=== PATIENT | female | born 1960 | race Caucasian/White ===

== ENCOUNTER 2018-01-13 08:24 | Inpatient (IN) ==
[2018-01-13] MEDS ORDERED: MethylPREDNISolone Sod Succinate Inj 125 MG/2 ML Vial IV.PUSH ONE (08:38)
[2018-01-13] MEDS ORDERED: Sod Chloride 0.9% Inj 1,000 ML IV.CONT SCH (08:45)
--- NOTE | 2018-01-13 08:49 | ED ---
HPI General Chief complaint: Allergic Reaction Stated complaint: tongue swelling x sunday Time Seen by Provider: 01/13/18 08:30 Source: patient Mode of arrival: ambulatory Limitations: no limitations History of Present Illness HPI narrative: This is a 58-year-old female who presents to the emergency department with severe swelling and pain in her mouth involving her tongue. She says she first felt some discomfort on Sunday, 6 days ago. She went to the pharmacy to ask if they knew of anything that could improve it mid week. She feels like the swelling has gotten worse and today she woke up this morning and was unable to talk and decided she needed to come to the emergency department. She denies any associated shortness of breath but does have pain when she swallows. She has never had symptoms like this before. She denies any fevers or chills. She does not take any medications. She is allergic to mangoes and has significant swelling when she eats mangoes but does not think she is eaten anything like this in the past week. She does smoke a pack of cigarettes per day and drinks 3 alcoholic beverages a day. Related Data Home Medications Medication Instructions Recorded Confirmed ibuprofen 1 tab PO DIRECTED 01/13/18 01/13/18 Allergies Allergy/AdvReac Type Severity Reaction Status Date / Time hydrocodone AdvReac Nausea/Vomi Verified 01/13/18 08:38 ting Review of Systems ROS: all other systems reviewed are negative [facility] Medical History Medical History Patient denies medical problems (Acute) Surgical History Surgical History No history of previous surgery (Acute) Social History Social History Substance History: No History of Abuse Smoking Status: Current every day smoker Tobacco Type: Cigarettes Packs Per Day: 1 Cigarettes Per Day: 20.0 How Often Do You Have a Drink Containing Alcohol: 4 or more times a week Recent Out of Country Travel within the Last 8 Weeks: No Immunization History Tetanus Immunization: Unsure Hx Influenza Vaccine This Season: No Exam Narrative Exam Narrative: GENERAL:Well appearing, no acute distress SKIN: Focused skin assessment warm and dry. HEAD: Atraumatic. Normocephalic. EYES: Pupils equal and round. No injection or drainage. ENT: Moist mucous membranes. Edema of the sublingual region and right tongue, unable to visualize the posterior pharynx. Sublingual area is tender. No fullness or tenderness of the submandibular region. Patient has difficulty phonating, but is handling her secretions without difficulty. NECK: Trachea midline. CARDIOVASCULAR: Regular rate and rhythm. No murmur appreciated. RESPIRATORY: Diffuse expiratory wheezing bilaterally with no increased work of breathing. GASTROINTESTINAL: Abdomen soft, non-tender, nondistended. MUSCULOSKELETAL: No obvious deformities. NEUROLOGICAL: Awake and alert. No obvious cranial nerve deficits. Moving all extremities. PSYCHIATRIC: Appropriate mood and affect; insight and judgment normal. Course Initial Documented Vital Signs Temperature 98.2 F 01/13/18 08:36 Pulse Rate 61 01/13/18 08:36 Respiratory Rate 18 01/13/18 08:36 Blood Pressure 132/76 01/13/18 08:36 Pulse Oximetry 93 L 01/13/18 08:36 Last Documented Vital Signs Temperature 98.2 F 01/13/18 08:36 Pulse Rate 77 01/13/18 11:12 Respiratory Rate 18 01/13/18 11:12 Blood Pressure 141/77 H 01/13/18 11:12 Pulse Oximetry 96 01/13/18 08:51 Critical Care Time Critical Care Time: Yes Total Critical Care Time: 60 Attestation: Aggregate critical care time was 60 minutes. Time to perform other separately billable procedures was not included in the critical care time. My time did not include minutes spent treating any other patients simultaneously or on activities that did not directly contribute to the patient's treatment. The services I provided to this patient were to treat and/or prevent clinically significant deterioration that could result in: Disability, I provided critical care services requiring my management, as noted below: Chart data review, documentation time, medication orders and management, vital sign assessments/reviewing monitor data, ordering and reviewing lab tests, ordering and interpreting/reviewing x-rays and diagnostic studies, care of the patient and discussion of the patient with the admitting physicians. Medical Decision Making MDM Narrative Medical decision making narrative: This is a 58-year-old female who presents to the emergency department with tongue swelling that has been worsening over the past week. On exam she has fullness of her tongue and the sublingual area and I am unable to visualize the posterior pharynx. It does look edematous on exam however the time course would be unusual for an allergic reaction. She was treated with IM epinephrine, diphenhydramine and IV steroids. Her phonation seemed to improve somewhat following this. She is able to manage her own secretions and on my impression does not require intubation at this time. CT demonstrates edema at the base of the tongue involving the lingular tonsils with no evident fluid collection or mass. Patient will be transported to the intensive care unit at [facility] for close monitoring and availability of the anesthesia team and advanced airway equipment if she worsens. Medical Screen Exam Complete: Yes Emergency Medical Condition: Yes Differential Diagnosis Differential Diagnosis: Acute allergic reaction, angioedema, malignancy, abscess Lab Data Lab results reviewed: Yes I reviewed the patient's lab results. Lab results narrative: MCV is 105 likely in the setting of poor nutrition due to heavy alcohol use Result diagrams: 01/13/18 08:40 01/13/18 08:40 Lab Results 01/13/18 01/13/18 Range/Units 08:40 08:40 CBC w Diff Auto diff final WBC 11.0 (4.0-11.0) th/mm3 RBC 4.07 (4.00-5.30) mil/mm3 Hgb 15.0 (11.6-15.3) gm/dL Hct 43.1 (35.0-46.0) % MCV 105.9 H (80.0-100.0) fL MCH 37.0 H (27.0-34.0) pg MCHC 34.9 (32.0-36.0) % RDW 14.7 (11.6-17.2) % Plt Count 195 (150-450) th/mm3 MPV 9.6 (7.0-11.0) fL Neut % (Auto) 62.5 (16.0-70.0) % Lymph % (Auto) 25.1 (9.0-44.0) % [place]ockley % (Auto) 9.7 H (0.0-8.0) % Eos % (Auto) 1.2 (0.0-4.0) % Baso % (Auto) 1.5 (0.0-2.0) % Neut # (Auto) 6.8 (1.8-7.7) th/mm3 Lymph # (Auto) 2.8 (1.0-4.8) th/mm3 [place]ockley # (Auto) 1.1 H (0.0-0.9) th/mm3 Eos # (Auto) 0.1 (0.0-0.4) th/mm3 Baso # (Auto) 0.2 (0.0-0.2) th/mm3 WBC Differential . Differential Comment . Sodium 137 (136-145) meq/L Potassium 3.4 L (3.5-5.1) meq/L Chloride 103 (98-107) meq/L Carbon Dioxide 24.6 (21.0-32.0) meq/L Anion Gap 9 (5-15) meq/L BUN 3 L (7-18) mg/dL Creatinine 0.67 (0.50-1.00) mg/dL Estimated GFR Greater than 89 (>89) mL/min Random Glucose 99 (74-106) mg/dL Calcium 8.7 (8.5-10.1) mg/dL Total Bilirubin 0.5 (0.2-1.0) mg/dL AST 24 (15-37) U/L ALT 23 (10-53) U/L Alkaline Phosphatase 103 (45-117) U/L Total Protein 7.5 (6.4-8.2) g/dL Albumin 3.8 (3.4-5.0) g/dL Imaging Data Attestation: I personally reviewed and interpreted this imaging study as follows : Radiologist's impression: Face CT 01/13/18 08:38 CONCLUSION: 1. Significant edema base of the tongue involving lingual tonsils more so on the right than the left. [place] tonsils are spared. Inflammatory or allergic process is most likely etiology. Neoplasm thought to be more remote consideration. 2. Findings have been discussed with Dr. Burns on today's date Discharge Plan Discharge Disposition Patient Disposition: 30 Still Patient Discharge Condition Condition: Stable Discharge Details Diagnosis: Tongue edema Physicians Team ED Provider: Caridad Burns Primary Care Provider: Primary Care Nataly You Attending Provider: Robbi Sawyer Discharge Interventions Interventions: Vital Signs Last Done: 01/13/18 11:12 Status ED Status: Admitted Patient
[2018-01-13 08:50] LABS: Baso # (Auto) 0.2 th/mm3 (0.0-0.2); Baso % (Auto) 1.5 % (0.0-2.0); Eos # (Auto) 0.1 th/mm3 (0.0-0.4); Eos % (Auto) 1.2 % (0.0-4.0); Hematocrit 43.1 % (35.0-46.0); Lymph # (Auto) 2.8 th/mm3 (1.0-4.8); Lymph % (Auto) 25.1 % (9.0-44.0); Mean Corpuscular HGB Conc 34.9 % (32.0-36.0); Mean Corpuscular Volume 105.9 fL (80.0-100.0); Mean Platelet Volume 9.6 fL (7.0-11.0); Mono # (Auto) 1.1 th/mm3 (0.0-0.9); Mono % (Auto) 9.7 % (0.0-8.0); Neut # (Auto) 6.8 th/mm3 (1.8-7.7); Neut % (Auto) 62.5 % (16.0-70.0); Platelet Count 195 th/mm3 (150-450); Red Blood Count 4.07 mil/mm3 (4.00-5.30); Red Cell Distribution Width 14.7 % (11.6-17.2)
[2018-01-13 08:58] LABS: Chloride 103 meq/L (98-107); Potassium 3.4 meq/L (3.5-5.1); Sodium 137 meq/L (136-145)
[2018-01-13 09:01] LABS: Albumin 3.8 g/dL (3.4-5.0); Anion Gap 9 meq/L (5-15); Calcium 8.7 mg/dL (8.5-10.1); Carbon Dioxide 24.6 meq/L (21.0-32.0); Glucose,Random 99 mg/dL (74-106)
[2018-01-13 09:02] LABS: Blood Urea Nitrogen 3 mg/dL (7-18)
[2018-01-13 09:04] LABS: Alanine Aminotransferase 23 U/L (10-53); Aspartate Aminotransferase 24 U/L (15-37)
[2018-01-13 09:05] LABS: Glomerular Filtration Rate Greater Than 89 mL/min (>89)
[2018-01-13 09:06] LABS: Total Protein 7.5 g/dL (6.4-8.2)
[2018-01-13 09:07] LABS: Alkaline Phosphatase 103 U/L (45-117)
--- NOTE | 2018-01-13 09:52 | CT ---
EXAM DATE: 01/13/2018 9:36 AM EDT AGE/SEX: 58 years / Female INDICATIONS: Swollen tongue for six days. Patient woke up this morning and was unable to talk. CLINICAL DATA: This is the patient's initial encounter. Patient reports that signs and symptoms have been present for 4 - 6 days and indicates a pain score of 0/10. MEDICAL/SURGICAL HISTORY: None. None. RADIATION DOSE: 30.02 CTDI (mGy) COMPARISON: No prior exams available for comparison. TECHNIQUE: Contiguous images in the axial and coronal planes were obtained using helical multirow de tector technique with 95 ml Omnipaque 350 (iohexol) nonionic water-soluble contrast as a single exam dose. Using automated exposure control and adjustment of the mA and/or kV according to patient size , radiation dose was kept as low as reasonably achievable to obtain optimal diagnostic quality images . DICOM format image data is available electronically for review and comparison. FINDINGS: The oropharynx is unremarkable with a large swollen on and enhancing lingual tonsil on the right. Thi s is an unusual place for abscess. This induration and edema extends into the mildly dilated geniohyo id muscles. The lingual artery space on the right is effaced. The palatine tonsils are normal in size. Submandibular glands and parotid glands appear normal. The low neck is unremarkable. There is no adenopathy. CONCLUSION: 1. Significant edema base of the tongue involving lingual tonsils more so on the right than the left . [place] tonsils are spared. Inflammatory or allergic process is most likely etiology. Neoplasm tho ught to be more remote consideration. 2. Findings have been discussed with Dr. Burns on today's date Electronically signed by: Ankur Monge MD 01/13/2018 9:51 AM EDT
[2018-01-13] MEDS ORDERED: RESP: Racemic Epinephrine 2.25% 0.5 ML Neb NEB PRN (11:29)
[2018-01-13] MEDS ORDERED: Haloperidol Inj 5 MG/ML Ampul IV.PUSH PRN (11:32)
--- NOTE | 2018-01-13 11:49 | P.HPCC ---
History of Present Illness Service: Critical care medicine Primary Care Physician: No Primary Care Physician Chief Complaint: Painful mouth and neck, difficulty swallowing History of Present Illness: This 58-year-old woman has a 6 day history of the sensation of a mass in the back of her throat and pain when swallowing. She has not had this type of response before except one time associated with the ingestion of mangoes. Her only allergy is to hydrocodone and that resulted in nausea and vomiting. She is on no MK inhibitors or other medications which might elicit this response. CAT scan of the face and neck shows diffuse swelling of the base of the tongue and considerable swelling of the right tonsillar region. The left tonsillar region is moderately edematous. She is afebrile and there is no leukocytosis. We have been contacted by the emergency department in [place] and she will be transferred to the intensive surgical care unit at the [facility] for airway precautions and further evaluation. She has received steroids at the outside hospital. - Diagnosis (1) Tongue edema (2) Impaired swallowing associated with throat pain Inpatient Certification: I certify that the inpatient services were ordered in accordance with Medicare regulations governing the order. This includes certification that hospital inpatient services are reasonable and necessary and in the case of services not specified as inpatient-only under 42 CFR 419.22(n), that they are appropriately provided as inpatient services in accordance to with the 2-midnight benchmark under 43 CFR 412.3(e) Estimated Total Length of Stay (Days): 2 Plans for Post Hospital Care: Home Review of Systems Painful swallowing. No chest pain or shortness of breath. PMF - History History Provided By: Patient, Family Member - Medical History Medical History: Medical History (Last Reviewed 01/13/18 @ 08:47 by Caridad Burns MD) Patient denies medical problems - Surgical History Surgical History: Surgical History (Last Reviewed 01/13/18 @ 08:47 by Caridad Burns MD) No history of previous surgery - Tobacco History Tobacco Use In Past 30 Days: Yes Smoking Status: Current every day smoker Tobacco Type: Cigarettes Packs Per Day: 1 Cigarettes Per Day: 20.0 - Alcohol History How Often Do You Have a Drink Containing Alcohol: 4 or more times a week - Substance Use History Substance History: No History of Abuse - Travel History Recent Travel Out of the Country Within the Last 8 Weeks: No - Immunization History Tetanus Immunization: Unsure Hx Influenza Vaccine This Season: No Medications and Allergies Active Medications: Active Medications Albuterol (Duoneb Neb (Prn)) 1 ampul NEB Q2HR NEB PRN PRN Reason: WHEEZING Chlorhexidine Gluconate (Chlorhexidine 2% Cloth) 3 pack TOPICAL DAILY@0400 DEDRA Stop: 01/19/18 03:59 Chlorhexidine Gluconate (Chlorhexidine 2% Cloth) 3 pack TOPICAL DAILY@0400 PRN PRN Reason: Extra cloth needed Stop: 01/19/18 03:59 Dexamethasone Sodium Phosphate (Decadron Inj) 10 mg IV.PUSH ONCE ONE Stop: 01/13/18 13:01 Dexamethasone Sodium Phosphate (Decadron Inj) 4 mg IV.PUSH Q6HR DEDRA Enoxaparin Sodium (Lovenox Inj) 40 mg SQ Q24H DEDRA Epinephrine (Racepinephrine 2.25% Neb) 0.5 ml NEB Q3H PRN PRN Reason: STRIDOR Famotidine (Pepcid Pf Inj) 20 mg IV.PUSH Q12HR DEDRA Flumazenil (Romazecon Inj) 0.2 mg IV.PUSH Q1M PRN PRN Reason: OVERSEDATION Haloperidol Lactate (Haldol Inj) 1 mg IV.PUSH Q15M PRN PRN Reason: for severe agitation Potassium Chloride/Sodium Chloride (Ns + Kcl 20 Meq Inj) 1,000 mls @ 50 mls/hr IV.CONT .Q20H DEDRA Ceftriaxone Sodium 1,000 mg/ (Sodium Chloride) 100 mls @ 200 mls/hr IV.SIG Q24H DEDRA Lorazepam (Ativan Inj) 1 mg IV.PUSH Q6H PRN PRN Reason: Agitation/sedation Lorazepam (Ativan) 2 mg PO Q2H PRN PRN Reason: for CIWA 11-14 Lorazepam (Ativan Inj) 2 mg IV.PUSH Q2H PRN PRN Reason: for CIWA 11-14 Lorazepam (Ativan Inj) 2 mg IV.PUSH Q1H PRN PRN Reason: for CIWA 15-20 Lorazepam (Ativan Inj) 1 mg IV.PUSH Q4H PRN PRN Reason: for CIWA 8-10 Lorazepam (Ativan Inj) 2 mg IV.PUSH Q15M PRN PRN Reason: for CIWA > 20 Ondansetron HCl (Zofran Inj) 4 mg IV.PUSH Q6H PRN PRN Reason: NAUSEA OR VOMITING Sodium Chloride (Ns Flush) 2 ml IV.FLUSH PRN PRN PRN Reason: FLUSH AFTER USING IV ACCESS Last Admin: 01/13/18 08:48 Dose: 2 ml Sodium Chloride (Ns Flush) 2 ml IV.FLUSH BID DEDRA Sodium Chloride (Ns Flush) 2 ml IV.FLUSH PRN PRN PRN Reason: FLUSH AFTER USING IV ACCESS Allergies Allergy/AdvReac Type Severity Reaction Status Date / Time hydrocodone AdvReac Nausea/Vomi Verified 01/13/18 08:38 ting Home Medications Medication Instructions Recorded Confirmed Type ibuprofen 1 tab PO DIRECTED 01/13/18 01/13/18 History Results - Labs CBC & Chem 7: 01/13/18 08:40 01/13/18 08:40 Labs: Short CBC 01/13/18 Range/Units 08:40 WBC 11.0 (4.0-11.0) th/mm3 Hgb 15.0 (11.6-15.3) gm/dL Hct 43.1 (35.0-46.0) % Plt Count 195 (150-450) th/mm3 BMP 01/13/18 08:40 Sodium 137 Potassium 3.4 L Chloride 103 Carbon Dioxide 24.6 BUN 3 L Creatinine 0.67 Calcium 8.7 Liver Function 01/13/18 Range/Units 08:40 Total Bilirubin 0.5 (0.2-1.0) mg/dL AST 24 (15-37) U/L ALT 23 (10-53) U/L Alkaline Phosphatase 103 (45-117) U/L Albumin 3.8 (3.4-5.0) g/dL - Imaging Impressions Face CT 01/13/18 08:38 CONCLUSION: 1. Significant edema base of the tongue involving lingual tonsils more so on the right than the left. [place] tonsils are spared. Inflammatory or allergic process is most likely etiology. Neoplasm thought to be more remote consideration. 2. Findings have been discussed with Dr. Burns on today's date Exam Vital signs: Vital Signs 01/13/18 08:36 01/13/18 08:37 01/13/18 08:51 Temperature 98.2 F Pulse Rate 61 69 Respiratory Rate 18 18 Blood Pressure 132/76 119/78 Pulse Oximetry 93 L 96 96 01/13/18 11:12 Temperature Pulse Rate 77 Respiratory Rate 18 Blood Pressure 141/77 H Pulse Oximetry Intake & Output 01/12/18 01/13/18 01/13/18 18:59 06:59 18:59 Weight 53.524 kg Narrative: General: Middle-aged woman, comfortable, hoarse voice Head: Normal: Atraumatic Neck: Supple, no tenderness to motion. No stridor. Tender by carotid bifurcation right side Lungs: Clear, comfortable respiratory pattern, nonlabored. Heart: Walsh tones. Normal S1-S2. No JVD Abdomen: Benign, soft, no guarding. Extremities: Warm, well-perfused. No peripheral edema Neuro: Voice is mildly distorted. Motor and sensory grossly intact. Cranial nerves II through XII intact. Oriented, alert, appropriate. Caprini VTE Risk Assessment Caprini VTE Risk Assessment: Moderate/High Risk (score >= 2) Caprini Risk Assessment Model: Point Value = 1 Point Value = 2 Point Value = 3 Point Value = 5 Age 41-60 Minor surgery BMI > 25 kg/m2 Swollen legs Varicose veins or History of unexplained or recurrent spontaneous Oral contraceptives or hormone replacement Sepsis (< 1 month) Serious lung disease, including pneumonia (< 1 month) Abnormal pulmonary function Acute myocardial infarction Congestive heart failure (< 1 month) History of inflammatory bowel disease Medical patient at bed rest Age 61-74 Arthroscopic surgery Major open surgery (> 45 min) Laparoscopic surgery (> 45 min) Malignancy Confined to bed (> 72 hours) Immobilizing plaster cast Central venous access Age >= 75 History of VTE Family history of VTE Factor V Leiden Prothrombin [id number] Lupus anticoagulant Anticardiolipin antibodies Elevated serum homocysteine Heparin-induced thrombocytopenia Other congenital or acquired thrombophilia Stroke (< 1 month) Elective arthroplasty Hip, pelvis, or leg fracture Acute spinal cord injury (< 1 month) Prophylaxis Regimen: Total Risk Factor Score Risk Level Prophylaxis Regimen 0-1 Low Early ambulation 2 Moderate Order ONE of the following: *Sequential Compression Device (SCD) *Heparin 5000 units SQ BID 3-4 Higher Order ONE of the following medications: *Heparin 5000 units SQ TID *Enoxaparin/Lovenox 40 mg SQ daily (WT < 150 kg, CrCl > 30 mL/min) *Enoxaparin/Lovenox 30 mg SQ daily (WT < 150 kg, CrCl > 10-29 mL/min) *Enoxaparin/Lovenox 30 mg SQ BID (WT < 150 kg, CrCl > 30 mL/min) AND/OR *Sequential Compression Device (SCD) 5 or more Highest Order ONE of the following medications: *Heparin 5000 units SQ TID (Preferred with Epidurals) *Enoxaparin/Lovenox 40 mg SQ daily (WT < 150 kg, CrCl > 30 mL/min) *Enoxaparin/Lovenox 30 mg SQ daily (WT < 150 kg, CrCl > 10-29 mL/min) *Enoxaparin/Lovenox 30 mg SQ BID (WT < 150 kg, CrCl > 30 mL/min) AND *Sequential Compression Device (SCD) Assessment and Plan - Problem List (1) Tongue edema Code(s): K14.8 - Other diseases of tongue Status: Acute (2) Impaired swallowing associated with throat pain Code(s): R13.10 - Dysphagia, unspecified; R07.0 - Pain in throat Status: Acute - Assessment and Plan Plan: Plan: Tongue and tonsil edema, upper airway obstruction -Decadron every 6 hours -Ceftriaxone -Attempt throat culture -Minimal extra intravenous fluid -N.p.o. aside from sips of clear liquids -Pepcid -ENT consult for help with decision-making Active cigarette use -Counseled for cessation -Offered NicoDerm patch Daily alcohol use -CIWA protocol Prophylaxis -Lovenox 40 subcu daily -Pepcid Overall impression: This woman's most immediate problem is potential airway obstruction. For that she will be watched closely in the intensive care unit. The generalized tongue and pharyngeal edema appears to be consistent with an allergic problem, potentially an infectious problem. The differential includes simple angioedema, topical allergic reaction, infection with early abscess formation, and malignancy. It looks to me like an early abscess. Her airway is widely patent at this point.
[2018-01-13] MEDS ORDERED: Dexamethasone Inj 20 MG/5 ML Vial IV.PUSH ONE (13:00)
[2018-01-13] MEDS: Enoxaparin Inj 40 MG/0.4 ML Syringe SQ SCH ×2 (15:25→15:49)
[2018-01-13] MEDS ORDERED: Ibuprofen 400 MG Tablet PO PRN (16:11)
[2018-01-13] MEDS: Famotidine PF Inj 20 MG/2 ML Vial IV.PUSH SCH (20:27)
[2018-01-14] MEDS ORDERED: Chlorhexidine Gluconate 2% 1 Pack (2 Cloths) TOPICAL PRN (04:00)
[2018-01-14] MEDS ORDERED: Chlorhexidine Gluconate 2% 1 Pack (2 Cloths) TOPICAL SCH (04:00)
[2018-01-14 04:56] LABS: Baso % (Auto) 0.2 % (0.0-2.0); Hematocrit 41.7 % (35.0-46.0); Hemoglobin 14.3 gm/dL (11.6-15.3); Lymph # (Auto) 0.4 th/mm3 (1.0-4.8); Lymph % (Auto) 4.6 % (9.0-44.0); Mean Corpuscular HGB Conc 34.2 % (32.0-36.0); Mean Corpuscular Hemoglobin 37.8 pg (27.0-34.0); Mean Corpuscular Volume 110.5 fL (80.0-100.0); Mean Platelet Volume 11.6 fL (7.0-11.0); Mono # (Auto) 0.4 th/mm3 (0.0-0.9); Mono % (Auto) 4.6 % (0.0-8.0); Neut # (Auto) 8.3 th/mm3 (1.8-7.7); Neut % (Auto) 90.6 % (16.0-70.0); Platelet Count 152 th/mm3 (150-450); Red Blood Count 3.78 mil/mm3 (4.00-5.30); Red Cell Distribution Width 14.6 % (11.6-17.2); White Blood Count 9.2 th/mm3 (4.0-11.0)
[2018-01-14 05:23] LABS: Calcium 9.2 mg/dL (8.5-10.1); Carbon Dioxide 27.9 meq/L (21.0-32.0); Potassium 4.5 meq/L (3.5-5.1)
--- NOTE | 2018-01-14 06:51 | P.CON ---
History of Present Illness Service: ENT Consult date: 01/14/18 Reason for Consult: Lingual tonsil swelling Primary Care Provider: No Primary Care Physician Chief Complaint: Painful mouth and neck, difficulty swallowing History of Present Illness: 58 year old female. Several days sore throat. Started as right tongue pain. Became swollen with trismus. Presented to ED. CT confirmed lingual tonsil swelling, right greater than left. Placed on IV steroids and antibiotics. Much better today. [facility] - History History Provided By: Patient - Medical History Medical History: Medical History (Last Reviewed 01/13/18 @ 08:47 by Caridad Burns MD) Patient denies medical problems - Surgical History Surgical History: Surgical History (Last Reviewed 01/13/18 @ 08:47 by Caridad Burns MD) No history of previous surgery - Tobacco History Second Hand Smoke Exposure: Yes Tobacco Use In Past 30 Days: Yes Smoking Status: Current every day smoker Tobacco Type: Cigarettes Packs Per Day: 1 Cigarettes Per Day: 20.0 - Alcohol History How Often Do You Have a Drink Containing Alcohol: 4 or more times a week - Substance Use History Substance History: No History of Abuse - Travel History Recent Travel Out of the Country Within the Last 8 Weeks: No - Immunization History Tetanus Immunization: <5 Years Hx Influenza Vaccine This Season: No Medications and Allergies Active Medications: Active Medications Albuterol (Duoneb Neb (Prn)) 1 ampul NEB Q2HR NEB PRN PRN Reason: WHEEZING Chlorhexidine Gluconate (Chlorhexidine 2% Cloth) 3 pack TOPICAL DAILY@0400 [facility] Stop: 01/19/18 03:59 Chlorhexidine Gluconate (Chlorhexidine 2% Cloth) 3 pack TOPICAL DAILY@0400 PRN PRN Reason: Extra cloth needed Stop: 01/19/18 03:59 Dexamethasone Sodium Phosphate (Decadron Inj) 4 mg IV.PUSH Q6HR [facility] Last Admin: 01/13/18 23:14 Dose: 4 mg Enoxaparin Sodium (Lovenox Inj) 40 mg SQ Q24H [facility] Last Admin: 01/13/18 15:49 Dose: Not Given Epinephrine (Racepinephrine 2.25% Neb) 0.5 ml NEB Q3HR NEB PRN PRN Reason: STRIDOR Famotidine (Pepcid Pf Inj) 20 mg IV.PUSH Q12HR [facility] Last Admin: 01/13/18 20:27 Dose: Not Given Flumazenil (Romazecon Inj) 0.2 mg IV.PUSH Q1M PRN PRN Reason: OVERSEDATION Haloperidol Lactate (Haldol Inj) 1 mg IV.PUSH Q15M PRN PRN Reason: for severe agitation Potassium Chloride/Sodium Chloride (Ns + Kcl 20 Meq Inj) 1,000 mls @ 50 mls/hr IV.CONT .Q20H [facility] Last Admin: 01/13/18 15:25 Dose: 50 mls/hr Ceftriaxone Sodium 1,000 mg/ (Sodium Chloride) 100 mls @ 200 mls/hr IV.SIG Q24H [facility] Last Infusion: 01/13/18 15:54 Dose: Infused Ibuprofen (Motrin) 400 mg PO Q6H PRN PRN Reason: PAIN 1-10 AND/OR FEVER >101F Lorazepam (Ativan Inj) 1 mg IV.PUSH Q6H PRN PRN Reason: Agitation/sedation Lorazepam (Ativan) 2 mg PO Q2H PRN PRN Reason: for CIWA 11-14 Lorazepam (Ativan Inj) 2 mg IV.PUSH Q2H PRN PRN Reason: for CIWA 11-14 Lorazepam (Ativan Inj) 2 mg IV.PUSH Q1H PRN PRN Reason: for CIWA 15-20 Lorazepam (Ativan Inj) 1 mg IV.PUSH Q4H PRN PRN Reason: for CIWA 8-10 Lorazepam (Ativan Inj) 2 mg IV.PUSH Q15M PRN PRN Reason: for CIWA > 20 Ondansetron HCl (Zofran Inj) 4 mg IV.PUSH Q6H PRN PRN Reason: NAUSEA OR VOMITING Last Admin: 01/13/18 15:35 Dose: 4 mg Sodium Chloride (Ns Flush) 2 ml IV.FLUSH PRN PRN PRN Reason: FLUSH AFTER USING IV ACCESS Last Admin: 01/13/18 08:48 Dose: 2 ml Sodium Chloride (Ns Flush) 2 ml IV.FLUSH BID [facility] Last Admin: 01/13/18 20:27 Dose: Not Given Sodium Chloride (Ns Flush) 2 ml IV.FLUSH PRN PRN PRN Reason: FLUSH AFTER USING IV ACCESS Allergies Allergy/AdvReac Type Severity Reaction Status Date / Time hydrocodone AdvReac Nausea/Vomi Verified 01/13/18 08:38 ting Home Medications Medication Instructions Recorded Confirmed Type ibuprofen 1 tab PO DIRECTED 01/13/18 01/13/18 History Physical Exam Vital signs: Vital Signs 01/13/18 08:36 01/13/18 08:37 01/13/18 08:51 Temperature 98.2 F Pulse Rate 61 69 Respiratory Rate 18 18 Blood Pressure 132/76 119/78 Pulse Oximetry 93 L 96 96 01/13/18 11:12 01/13/18 14:30 01/13/18 15:22 Temperature 98.4 F Pulse Rate 77 76 Respiratory Rate 18 16 Blood Pressure 141/77 H 134/82 Pulse Oximetry 97 97 01/13/18 16:00 01/13/18 18:00 01/13/18 20:00 Temperature 98.4 F 98.7 F Pulse Rate 72 64 73 Respiratory Rate 20 19 Blood Pressure 136/87 128/68 Pulse Oximetry 95 95 01/13/18 22:00 01/13/18 22:30 01/14/18 00:00 Temperature 97.8 F Pulse Rate 56 L 53 L Respiratory Rate 26 H Blood Pressure 107/64 Pulse Oximetry 96 92 L 01/14/18 02:00 01/14/18 04:00 Temperature 97.8 F Pulse Rate 55 L 52 L Respiratory Rate 19 Blood Pressure 111/69 Pulse Oximetry 93 L Intake & Output 01/13/18 01/13/18 01/14/18 06:59 18:59 06:59 Intake Total 1270 / 1270 Balance 1270 / 1270 Weight 55.7 kg Intake: IV 550 / 550 NS Inj 1,000 ML @ 125 mls/hr IV 450 / 450 .CONT .Q8H [facility] Rx#:[id number] Rocephin Inj 1,000 MG In NS Inj 100 / 100 100 ML @ 200 mls/hr IV.SIG Q24H [facility] Rx#:[id number] Oral 720 / 720 Other: # Voids 2 Date of Last Bowel Movement 01/12/18 # Bowel Movements 0 Weight On Admission 55.7 kg - Constitutional average body habitus - Routine HEENT Exam Head: Present: normocephalic, atraumatic. Absent: facial swelling Eye: Present: EOMI, PERRL. Absent: nystagmus ENT: Present: mucous membranes moist, nares patent, external ear normal. Absent : oropharynx clear (Mild residual right tongue swelling. Hairy tongue. No trismus. ), sinus tenderness - Routine Neurological Exam Present: alert, oriented X3 Assessment and Plan - Assessment (1) Tongue edema Code(s): K14.8 - Other diseases of tongue Status: Acute (2) Impaired swallowing associated with throat pain Code(s): R13.10 - Dysphagia, unspecified; R07.0 - Pain in throat Status: Acute - Plan 58 year old female with lingual tonsillitis. Possible early abscess. Has responded very well to IV Decadron and Rocephin. Recommend continuing IV therapy today. Can discharge tomorrow on a Medrol Dose Pack and Augmentin or Clindamycin for 1 week. Follow with ENT prn. Needs good tongue brushing/oral care.
[2018-01-14] MEDS: Famotidine PF Inj 20 MG/2 ML Vial IV.PUSH SCH (09:08)
--- NOTE | 2018-01-14 11:38 | P.DS ---
Date of admission: 01/13/18 11:06 Primary care physician: No Primary Care Physician Attending physician on discharge: Stephenie Carroll Anticipated date of discharge: 01/14/18 Brief History from admission: This 58-year-old woman has a 6 day history of the sensation of a mass in the back of her throat and pain when swallowing. She has not had this type of response before except one time associated with the ingestion of mangoes. Her only allergy is to hydrocodone and that resulted in nausea and vomiting. She is on no MK inhibitors or other medications which might elicit this response. CAT scan of the face and neck shows diffuse swelling of the base of the tongue and considerable swelling of the right tonsillar region. The left tonsillar region is moderately edematous. She is afebrile and there is no leukocytosis. We have been contacted by the emergency department in [place] and she will be transferred to the intensive surgical care unit at the [facility] for airway precautions and further evaluation. She has received steroids at the outside hospital. Patient update on day of discharge: 01/14: Patient reports that her tongue swelling is "much better" today, swallowing without difficulty, no trismus or drooling. She is requesting to be discharged. She was seen by ENT today, who agrees with steroids/ antibiotics and outpatient follow up PRN. DS: Diagnosis - Discharge Diagnosis (1) Tongue edema Status: Acute DS: Medications - Discharge Medications Prescriptions: clindamycin HCl [Cleocin HCl] 300 mg PO TID 7 Days #21 cap dexamethasone [Decadron] 4 mg PO Q6H 3 Days #12 tab DS: Summary Hospital Course: The patient was admitted overnight to the intensive care unit for close monitoring in the setting of tongue/ airway swelling. She was given scheduled steroids and antibiotics. She was seen by ENT this morning, who agrees with antibiotics/ steroids and outpatient follow up as needed. The patient reports significant improvement in swelling and is requesting to be discharged home. - Time Spent with Patient Counseling/ Coordination of Care: Total time spent providing and/or coordinating discharge services: 35 minutes This includes examining the patient, gathering history from someone other than the patient (i.e. chart review), discussing the patient's care with other providers, prescribing medications/ reconciliation of inpatient medications, and documentation. Amount of time is separate from teaching, counseling the patient and/or family, and exclusive of procedures. Greater than 30 minutes - Quality: AMI Clinical Trial Participant: No - Quality: VTE Contraindication No VTE Prophylaxis: Not indicated Deep Vein Thrombosis/Pulmonary Embolism Present on Admission: No Exam Vital signs: Vital Signs 01/13/18 14:30 01/13/18 15:22 01/13/18 16:00 Temperature 98.4 F 98.4 F Pulse Rate 76 72 Respiratory Rate 16 20 Blood Pressure 134/82 136/87 Pulse Oximetry 97 97 95 01/13/18 18:00 01/13/18 20:00 01/13/18 22:00 Temperature 98.7 F Pulse Rate 64 73 56 L Respiratory Rate 19 Blood Pressure 128/68 Pulse Oximetry 95 01/13/18 22:30 01/14/18 00:00 01/14/18 02:00 Temperature 97.8 F Pulse Rate 53 L 55 L Respiratory Rate 26 H Blood Pressure 107/64 Pulse Oximetry 96 92 L 01/14/18 04:00 01/14/18 06:00 01/14/18 08:00 Temperature 97.8 F 97.9 F Pulse Rate 52 L 55 L 59 L Respiratory Rate 19 15 Blood Pressure 111/69 145/82 H Pulse Oximetry 93 L 95 01/14/18 08:09 01/14/18 10:00 Temperature Pulse Rate 75 Respiratory Rate Blood Pressure Pulse Oximetry 96 Intake & Output 01/13/18 01/14/18 01/14/18 18:59 06:59 18:59 Intake Total 1270 / 1270 720 / 720 1000 / 1000 Balance 1270 / 1270 720 / 720 1000 / 1000 Weight 55.7 kg 55.7 kg Intake: IV 550 / 550 1000 / 1000 NS + KCl 20 mEq Inj 1,000 ML @ 1000 / 1000 50 mls/hr IV.CONT .Q20H [facility] Rx# :[id number] NS Inj 1,000 ML @ 125 mls/hr IV 450 / 450 .CONT .Q8H [facility] Rx#:[id number] Rocephin Inj 1,000 MG In NS Inj 100 / 100 100 ML @ 200 mls/hr IV.SIG Q24H [facility] Rx#:[id number] Oral 720 / 720 720 / 720 Other: # Voids 2 2 Date of Last Bowel Movement 01/12/18 01/12/18 # Bowel Movements 0 0 Weight On Admission 55.7 kg Narrative: GEN: Well-appearing, sitting up in chair, no acute distress HEENT: NCAT, mild right-sided tongue swelling, no trismus or drooling, uvula midline, normal phonation NECK: No stridor CARDIO: Regular rate and rhythm PULM: Clear to auscultation bilaterally ABD/GI: Soft, non-tender EXT: No peripheral edema SKIN: No rashes or lesions NEURO: Awake and alert, speech clear and fluent PSYCH: Appropriate affect Results Procedures completed during hospitalization: None Completed studies during hospitalization: CT face: 1. Significant edema base of the tongue involving lingual tonsils more so on the right than the left. [place] tonsils are spared. Inflammatory or allergic process is most likely etiology. Neoplasm thought to be more remote consideration. Pending studies at discharge: None Labs on day of discharge: Labs from last 24 hours 01/14/18 01/14/18 01/13/18 03:51 03:51 15:26 WBC 9.2 RBC 3.78 L Hgb 14.3 Hct 41.7 MCV 110.5 H D MCH 37.8 H MCHC 34.2 RDW 14.6 Plt Count 152 MPV 11.6 H Neut % (Auto) 90.6 H Lymph % (Auto) 4.6 L [place] % (Auto) 4.6 Eos % (Auto) 0.0 Baso % (Auto) 0.2 Neut # (Auto) 8.3 H Lymph # (Auto) 0.4 L [place] # (Auto) 0.4 Eos # (Auto) 0.0 Baso # (Auto) 0.0 WBC Differential . Differential Comment Auto diff final Sodium 139 Potassium 4.5 D Chloride 105 Carbon Dioxide 27.9 Anion Gap 6 BUN 6 L Creatinine 0.70 Estimated GFR 86 L Random Glucose 170 H Calcium 9.2 Nasal Screen MRSA (PCR) Not detected - Impressions ITS Impressions Face CT 01/13/18 08:38 CONCLUSION: 1. Significant edema base of the tongue involving lingual tonsils more so on the right than the left. [place] tonsils are spared. Inflammatory or allergic process is most likely etiology. Neoplasm thought to be more remote consideration. 2. Findings have been discussed with Dr. Burns on today's date Discharge Plan - Discharge Disposition Patient Disposition: Discharge Home - Discharge Condition Condition: Stable - Discharge Order Discharge Orders: Discharge Order (Routine); Ordered 01/14/18 Ordered By: Stephenie Carroll - Discharge Details Anticipated Discharge Date: 01/14/18 - Physicians Team Primary Care Provider: Primary Care Nataly You Attending Provider: Robbi Sawyer Other Providers: Chalino Clemente MD
[2018-01-14] MEDS: Enoxaparin Inj 40 MG/0.4 ML Syringe SQ SCH (12:10)
[2018-01-14 12:36] VITALS: PULSE 85
[2018-01-14 12:37] VITALS: BP 123/61; RESP 20; TEMP 98.9; O2SAT 97
== END 2018-01-14 14:00 | disposition home or self-care (01) ==
LOC: PHED 08:24 → PHEDA 11:06 → N03 13:31
PROVIDERS: ADMIT Internal Medicine Critical Care Medicine; ATTEND Internal Medicine Critical Care Medicine

== ENCOUNTER 2018-01-19 16:03 | Inpatient (IN) ==
--- NOTE | 2018-01-19 17:06 | ED ---
HPI General Chief Complaint: Recheck/Abnormal Lab/Rx Stated Complaint: Swollen tongue and throat Time Seen by Provider: 01/19/18 17:06 Source: patient Mode of arrival: ambulatory Limitations: no limitations History of Present Illness HPI narrative: The patient is 58 years old and arrives with sore throat and swelling in the right side of the throat. She is seen here about 1 week ago and diagnosed with peritonsillar abscess. Actually the patient was seen at [place] and diagnosed with peritonsillar abscess there she was kept overnight and discharged and followed up with Dr. Clemente of ENT. She went home with dexamethasone and clindamycin 300 mg 3 times daily. She has been compliant with the clindamycin and dexamethasone strictly. She reports over the past day and a half or so she has developed increasing pain and swelling in the right throat. Is now difficult to open the mouth. It is difficult to swallow although patient is able to tolerate oral hydration with with a straw. complaint: needs IV antibiotics Initial visit (ago): day(s) (6) Initial visit for: other (Peritonsillar abscess) Returns today for: needs IV antibiotics Symptoms since prior visit: worsening pain and worsening swelling Treatments prior to arrival: given antibiotics on Related Data Home Medications Medication Instructions Recorded Confirmed ibuprofen 1 tab PO DIRECTED 01/13/18 01/19/18 Previous Rx's Medication Instructions Recorded clindamycin HCl [Cleocin HCl] 300 mg PO TID 7 Days #21 cap 01/14/18 Allergies Allergy/AdvReac Type Severity Reaction Status Date / Time hydrocodone AdvReac Nausea/Vomi Verified 01/13/18 08:38 ting Review of Systems ROS: all other systems reviewed are negative [facility] Medical History Medical History Tobacco abuse (Acute) Patient denies medical problems (Acute) Surgical History Surgical History No history of previous surgery (Acute) Family History Family History Mother Stroke COPD (chronic obstructive pulmonary disease) Social History Social History Substance History: No History of Abuse Second Hand Smoke Exposure: Yes Smoking Status: Current every day smoker Tobacco Type: Cigarettes Packs Per Day: 1 Cigarettes Per Day: 20.0 How Often Do You Have a Drink Containing Alcohol: 4 or more times a week Recent Travel in [facility] within the Last 8 Weeks: No Recent Out of Country Travel within the Last 8 Weeks: No Immunization History Tetanus Immunization: Unsure Exam Narrative Exam Narrative: GENERAL: 58-year-old female well-nourished well-developed, moderate distress SKIN: Focused skin assessment warm/dry. HEAD: Atraumatic. Normocephalic. EYES: Pupils equal and round. No scleral icterus. No injection or drainage. ENT: Patient has some difficulty fully opening the mouth. The right soft palate is depressed there is a white exudate in the region of the right peritonsillar distribution. Along the right anterior neck externally there is generalized swelling with minimal tenderness. NECK: Trachea midline. No JVD. CARDIOVASCULAR: Regular rate and rhythm. No murmur appreciated. RESPIRATORY: No accessory muscle use. Clear to auscultation. Breath sounds equal bilaterally. GASTROINTESTINAL: Abdomen soft, non-tender, nondistended. Hepatic and splenic margins not palpable. MUSCULOSKELETAL: No obvious deformities. No clubbing. No cyanosis. No edema. NEUROLOGICAL: Awake and alert. No obvious cranial nerve deficits. Motor grossly within normal limits. Normal speech. PSYCHIATRIC: Appropriate mood and affect; insight and judgment normal. Course Initial Documented Vital Signs Temperature 98.9 F 01/19/18 16:30 Pulse Rate 76 01/19/18 16:30 Respiratory Rate 15 01/19/18 16:30 Blood Pressure 146/88 H 01/19/18 16:30 Pulse Oximetry 96 01/19/18 16:30 Last Documented Vital Signs Temperature 98.6 F 01/19/18 23:25 Pulse Rate 55 L 01/20/18 04:00 Respiratory Rate 14 01/20/18 05:13 Blood Pressure 88/50 L 01/20/18 04:00 Pulse Oximetry 97 01/20/18 04:00 Sign Out Sign Out Data: Patient Sign Out occurred on 01/19/18 at 19:45. Patient's care was discussed, and care was transferred from Cruzito Bradford MD to Joseph Jorgensen. Sign Out Comment: Patient has a peritonsillar abscess and require require admission for IV antibiotics that she is currently on oral clindamycin which has not been effective. CT of the neck is pending. Last updated by Cruzito Bradford MD at 01/19/18 19:37 Post-Handoff Eval: Patient has a CT that shows a worsening of the right-sided infection spreading now more caudal she is able to tolerate her own secretions there is no sign of airway compromise clinically she will be seen in the a.m. ENT consult is placed for a.m. in the morning. Pain medication is given Vanco and Unasyn had been given Medical Decision Making MDM Narrative Medical decision making narrative: Patient returns to the ED with peritonsillar abscess. CT of the neck is pending. She has leukocytosis. No fever or tachycardia. Unasyn and vancomycin started. Patient will require admission for ongoing IV antibiotics. Patient can tolerate oral hydration with a straw Case discussed with Dr. Jorgensen at 7 PM, who will assume care for this patient. Medical Screen Exam Complete: Yes Emergency Medical Condition: Yes Differential Diagnosis Differential Diagnosis: Peritonsillar abscess, retropharyngeal abscess, Airway obstruction, sepsis Lab Data Lab results reviewed: Yes I reviewed the patient's lab results. Result diagrams: 01/20/18 03:13 01/20/18 03:13 Lab Results 01/19/18 01/19/18 01/19/18 Range/Units 17:24 17:24 23:10 WBC 13.7 H (4.0-11.0) th/mm3 RBC 4.20 (4.00-5.30) mil/mm3 Hgb 15.5 H (11.6-15.3) gm/dL Hct 45.8 (35.0-46.0) % MCV 109.0 H (80.0-100.0) fL MCH 37.0 H (27.0-34.0) pg MCHC 34.0 (32.0-36.0) % RDW 14.2 (11.6-17.2) % Plt Count 182 (150-450) th/mm3 MPV 11.2 H (7.0-11.0) fL Neut % (Auto) 72.5 H (16.0-70.0) % Lymph % (Auto) 12.4 (9.0-44.0) % [place] % (Auto) 14.2 H (0.0-8.0) % Eos % (Auto) 0.8 (0.0-4.0) % Baso % (Auto) 0.1 (0.0-2.0) % Neut # (Auto) 9.9 H (1.8-7.7) th/mm3 Lymph # (Auto) 1.7 (1.0-4.8) th/mm3 [place] # (Auto) 1.9 H (0.0-0.9) th/mm3 Eos # (Auto) 0.1 (0.0-0.4) th/mm3 Baso # (Auto) 0.0 (0.0-0.2) th/mm3 WBC Differential . Differential Comment Auto diff final Sodium 139 (136-145) meq/L Potassium 3.7 (3.5-5.1) meq/L Chloride 103 (98-107) meq/L Carbon Dioxide 28.2 (21.0-32.0) meq/L Anion Gap 8 (5-15) meq/L BUN 15 (7-18) mg/dL Creatinine 0.71 (0.50-1.00) mg/dL Estimated GFR 85 L (>89) mL/min Random Glucose 86 (74-106) mg/dL Calcium 9.5 (8.5-10.1) mg/dL Total Bilirubin 0.6 (0.2-1.0) mg/dL AST 16 (15-37) U/L ALT 23 (10-53) U/L Alkaline Phosphatase 73 (45-117) U/L Total Protein 7.3 (6.4-8.2) g/dL Albumin 3.5 (3.4-5.0) g/dL Nasal Screen MRSA (PCR) Not detected (Negative) 01/20/18 01/20/18 Range/Units 03:13 03:13 WBC 15.7 H (4.0-11.0) th/mm3 RBC 3.87 L (4.00-5.30) mil/mm3 Hgb 14.3 (11.6-15.3) gm/dL Hct 42.6 (35.0-46.0) % MCV 110.2 H (80.0-100.0) fL MCH 37.0 H (27.0-34.0) pg MCHC 33.6 (32.0-36.0) % RDW 14.1 (11.6-17.2) % Plt Count 159 (150-450) th/mm3 MPV 10.5 (7.0-11.0) fL Neut % (Auto) 91.2 H (16.0-70.0) % Lymph % (Auto) 2.3 L (9.0-44.0) % [place] % (Auto) 6.4 (0.0-8.0) % Eos % (Auto) 0.0 (0.0-4.0) % Baso % (Auto) 0.1 (0.0-2.0) % Neut # (Auto) 14.3 H (1.8-7.7) th/mm3 Lymph # (Auto) 0.4 L (1.0-4.8) th/mm3 [place] # (Auto) 1.0 H (0.0-0.9) th/mm3 Eos # (Auto) 0.0 (0.0-0.4) th/mm3 Baso # (Auto) 0.0 (0.0-0.2) th/mm3 WBC Differential . Differential Comment Auto diff final Sodium 141 (136-145) meq/L Potassium 4.4 (3.5-5.1) meq/L Chloride 108 H (98-107) meq/L Carbon Dioxide 24.4 (21.0-32.0) meq/L Anion Gap 9 (5-15) meq/L BUN 9 (7-18) mg/dL Creatinine 0.56 (0.50-1.00) mg/dL Estimated GFR Greater than 89 (>89) mL/min Random Glucose 151 H (74-106) mg/dL Calcium 8.7 D (8.5-10.1) mg/dL Total Bilirubin (0.2-1.0) mg/dL AST (15-37) U/L ALT (10-53) U/L Alkaline Phosphatase (45-117) U/L Total Protein (6.4-8.2) g/dL Albumin (3.4-5.0) g/dL Nasal Screen MRSA (PCR) (Negative) Imaging Data Radiologist's impression: Soft Tissue Neck CT 01/19/18 00:00 CONCLUSION: 1. Significant change in appearance of the right oral pharynx and hypopharynx when compared to 01/13/2018 with significant increased soft tissue extending from the base of the tongue down into the level of the base of the epiglottis causing significant deviation of the airway towards the left. There is also increased enlargement of the right submandibular gland. Discharge Plan Discharge Disposition Patient Disposition: 30 Still Patient Physicians Team ED Provider: Joslyn,Joseph Primary Care Provider: Camden Moser Attending Provider: Chanell Ferreira Other Providers: Aneudy Pritchett ED Status: Left Department Discharge Information Discharge Date/Time: 01/19/18 23:00
[2018-01-19] MEDS ORDERED: Vancomycin Inj 1,500 MG in Sodium Chlor 0.9% Inj 500 ML IV.SIG ONE (17:16)
[2018-01-19] MEDS ORDERED: Ampicillin/Sulbactam Inj 3 GM in Sodium Chloride 0.9% Inj 100 ML IV.SIG ONE (17:16)
[2018-01-19] MEDS ORDERED: Morphine Inj 4 MG, Morphine Inj 2 MG IV.PUSH ONE ×2 (17:18)
[2018-01-19] MEDS ORDERED: Sod Chloride 0.9% Inj 1,000 ML IV.SIG SCH (17:30)
[2018-01-19 17:39] LABS: Baso % (Auto) 0.1 % (0.0-2.0); Eos # (Auto) 0.1 th/mm3 (0.0-0.4); Eos % (Auto) 0.8 % (0.0-4.0); Hematocrit 45.8 % (35.0-46.0); Hemoglobin 15.5 gm/dL (11.6-15.3); Lymph # (Auto) 1.7 th/mm3 (1.0-4.8); Lymph % (Auto) 12.4 % (9.0-44.0); Mean Platelet Volume 11.2 fL (7.0-11.0); Mono # (Auto) 1.9 th/mm3 (0.0-0.9); Mono % (Auto) 14.2 % (0.0-8.0); Neut # (Auto) 9.9 th/mm3 (1.8-7.7); Neut % (Auto) 72.5 % (16.0-70.0); Platelet Count 182 th/mm3 (150-450); Red Cell Distribution Width 14.2 % (11.6-17.2); White Blood Count 13.7 th/mm3 (4.0-11.0)
[2018-01-19 18:06] LABS: Alkaline Phosphatase 73 U/L (45-117); Total Protein 7.3 g/dL (6.4-8.2)
[2018-01-19 18:49] LABS: Alanine Aminotransferase 23 U/L (10-53); Albumin 3.5 g/dL (3.4-5.0); Anion Gap 8 meq/L (5-15); Aspartate Aminotransferase 16 U/L (15-37); Blood Urea Nitrogen 15 mg/dL (7-18); Calcium 9.5 mg/dL (8.5-10.1); Carbon Dioxide 28.2 meq/L (21.0-32.0); Chloride 103 meq/L (98-107); Glomerular Filtration Rate 85 mL/min (>89); Glucose,Random 86 mg/dL (74-106); Potassium 3.7 meq/L (3.5-5.1); Sodium 139 meq/L (136-145)
--- NOTE | 2018-01-19 20:25 | CT ---
EXAM DATE: 01/19/2018 12:00 AM EDT AGE/SEX: 58 years / Female INDICATIONS: Recently treated for tonsillar abscess; tongue swelling and difficulty swallowing. CLINICAL DATA: This is the patient's initial encounter. Patient reports that signs and symptoms have been present for 2 days and indicates a pain score of 6/10. MEDICAL/SURGICAL HISTORY: None. None. RADIATION DOSE: 15.23 CTDI (mGy) COMPARISON: [facility], CT FACIAL BONES W IV CON, 01/13/2018. . TECHNIQUE: Helical acquisition was performed using a multirow detector CT scanner during the adminis tration of 50 ml Omnipaque 350 (iohexol) nonionic water-soluble contrast as a single exam dose. Usi ng automated exposure control and adjustment of the mA and/or kV according to patient size, radiation dose was kept as low as reasonably achievable to obtain optimal diagnostic quality images. DICOM fo rmat image data is available electronically for review and comparison. FINDINGS: Comparison is made to CT with contrast performed 01/13/2018. There has been an increase in the amount of soft tissue thickening in the region of the base of the tongue on the right side adjacent to the posterior angle of the mandible, now measuring 3.4 cm in width and causing deviation of the uvula tow ards the left. The enlarged soft tissue density extends into the base of the tongue and the periphera lly enhancing 2.0 cm area in the right mid, and is similar in appearance. Right pharyngeal wall soft tissue thickening extends down to the level of the base of the epiglottis where there is 1.2 cm devia tion of the airway towards the left. Asymmetric enlargement of the right submandibular gland is also more prominent on the prior examination and there is a 1.3 cm low density area medially submandibular gland. Jugular lymph nodes measure up to 1.3 cm and is similar to prior. Prevertebral soft tissues are aust[place] l in thickness. Homogeneous enhancement within the thyroid. Superior clavicular region is intact. CONCLUSION: 1. Significant change in appearance of the right oral pharynx and hypopharynx when compared to 2017 with significant increased soft tissue extending from the base of the tongue down into the level of the base of the epiglottis causing significant deviation of the airway towards the left. There is also increased enlargement of the right submandibular gland. Electronically signed by: Nikolas Auguste MD 01/19/2018 8:23 PM EDT
[2018-01-19] MEDS ORDERED: HYDROmorphone PF Inj 2 MG/ML Vial IV.PUSH ONE (20:52)
[2018-01-19] MEDS ORDERED: Ketorolac Inj 30 MG/ML (IVP) Vial IV.PUSH PRN (22:15)
[2018-01-19] MEDS ORDERED: Dexamethasone Inj 20 MG/5 ML Vial IV.PUSH ONE (22:16)
--- NOTE | 2018-01-19 22:23 | P.HPCC ---
History of Present Illness Service: Critical Care Medicine Primary Care Physician: Camden Moser MD Chief Complaint: Sore throat History of Present Illness: 58-year-old female past medical history of tobacco and daily alcohol use. She presented to [facility] emergency department with severe sore throat. She was previously admitted on January 13 after she developed right tongue swelling, trismus, and difficulty swallowing. CT face at that time demonstrated edema and enhancement of lingual tonsils. She was admitted and placed on decadron and Rocephin. She was seen by Dr. Clemente and then discharged 01/14 after she had good 24 hour clinical response. She was discharged on clindamycin and decadron which she states she has been taking as prescribed. She states after discharge on Sunday she developed swelling below mandible and extending down her neck, slowly progressing over last 6 days. She has made follow-up appointment with ENT for January 21. However, she is no longer able to tolerate the pain. She is able to swallow oral secretions but it is so painful so sometimes she spits. She is able to speak with hot potato voice but writes to communicate because speaking is so painful. She denies fever. Is not really taking much to drink today due to odynophagia. CT now demonstrates worsening swelling of right tongue and pharyngeal soft tissue extending down right neck with deviation of airway. She is afebrile. - Diagnosis (1) Odynophagia (2) Lingual tonsillitis (3) Tongue edema (4) Swollen neck (5) Thrush (6) Tobacco abuse Review of Systems All other systems reviewed negative except as stated in [facility] - History History Provided By: Patient, Medical Record - Medical History Medical History: Medical History (Last Updated 01/20/18 @ 07:59 by Chanell Ferreira MD) Tobacco abuse Patient denies medical problems - Surgical History Surgical History: Surgical History (Last Reviewed 01/13/18 @ 08:47 by Caridad Burns MD) No history of previous surgery - Family History Family History: Family History (Last Updated 01/20/18 @ 07:59 by Chanell Ferreira MD) Mother Stroke COPD (chronic obstructive pulmonary disease) - Tobacco History Second Hand Smoke Exposure: Yes Tobacco Use In Past 30 Days: Yes Smoking Status: Current every day smoker Tobacco Type: Cigarettes Packs Per Day: 1 - Alcohol History How Often Do You Have a Drink Containing Alcohol: 4 or more times a week (4 vodka beverage per day) - Substance Use History Substance History: No History of Abuse - Travel History Recent Travel in the [place] Within the Last 8 Weeks: No Recent Travel Out of the Country Within the Last 8 Weeks: No - Immunization History Tetanus Immunization: Unsure Medications and Allergies Active Medications: Active Medications Dexamethasone Sodium Phosphate (Decadron Inj) 4 mg IV.PUSH Q6HR DEDRA Sodium Chloride (Ns Inj) 1,000 mls @ 0 mls/hr IV.SIG BOLUS DEDRA Last Infusion: 01/19/18 19:09 Dose: Infused Ampicillin Sodium/Sulbactam (Sodium 3 gm/ Sodium Chloride) 100 mls @ 200 mls/ hr IV.SIG Q6H DEDRA Ketorolac Tromethamine (Toradol Inj) 30 mg IV.PUSH Q6H PRN PRN Reason: pain Stop: 01/24/18 22:14 Lidocaine HCl (Lidocaine 2% Viscous) 15 ml SWISH-SWAL Q4H PRN PRN Reason: sorethroat Nystatin (Mycostatin Liq) 5 ml SWISH-SWAL QID DEDRA Allergies Allergy/AdvReac Type Severity Reaction Status Date / Time hydrocodone AdvReac Nausea/Vomi Verified 01/13/18 08:38 ting Home Medications Medication Instructions Recorded Confirmed Type ibuprofen 1 tab PO DIRECTED 01/13/18 01/19/18 History Results - Labs CBC & Chem 7: 01/20/18 03:13 01/20/18 03:13 Labs: Short CBC 01/19/18 Range/Units 17:24 WBC 13.7 H (4.0-11.0) th/mm3 Hgb 15.5 H (11.6-15.3) gm/dL Hct 45.8 (35.0-46.0) % Plt Count 182 (150-450) th/mm3 BMP 01/19/18 17:24 Sodium 139 Potassium 3.7 Chloride 103 Carbon Dioxide 28.2 BUN 15 Creatinine 0.71 Calcium 9.5 Liver Function 01/19/18 Range/Units 17:24 Total Bilirubin 0.6 (0.2-1.0) mg/dL AST 16 (15-37) U/L ALT 23 (10-53) U/L Alkaline Phosphatase 73 (45-117) U/L Albumin 3.5 (3.4-5.0) g/dL - Imaging Impressions Soft Tissue Neck CT 01/19/18 00:00 CONCLUSION: 1. Significant change in appearance of the right oral pharynx and hypopharynx when compared to 01/13/2018 with significant increased soft tissue extending from the base of the tongue down into the level of the base of the epiglottis causing significant deviation of the airway towards the left. There is also increased enlargement of the right submandibular gland. Exam Vital signs: Vital Signs 01/19/18 16:30 01/19/18 16:34 01/19/18 17:25 Temperature 98.9 F Pulse Rate 76 60 Respiratory Rate 15 18 Blood Pressure 146/88 H 127/78 Pulse Oximetry 96 98 96 01/19/18 19:00 01/19/18 21:40 Temperature Pulse Rate 80 72 Respiratory Rate 16 16 Blood Pressure 142/84 H 131/63 Pulse Oximetry 95 96 Intake & Output 01/19/18 01/19/18 01/20/18 06:59 18:59 06:59 Intake Total 100 / 100 1515 / 1515 Balance 100 / 100 1515 / 1515 Weight 50.802 kg Intake: IV 100 / 100 1515 / 1515 Unasyn Inj 3 GM In NS Inj 100 100 / 100 ML @ 200 mls/hr IV.SIG ONCE ONE Rx#:[id number] NS Inj 1,000 ML @ Wide Open IV. 1000 / 1000 SIG BOLUS DEDRA Rx#:[id number] Vancomycin Inj 1,500 MG In NS 515 / 515 Inj 500 ML @ 250 mls/hr IV.SIG ONCE ONE Rx#:[id number] Narrative: GENERAL: Well-nourished patient who is laying in ED stretcher. Sits up when I walk in the room. SKIN: Warm and dry, no rash HEAD: Atraumatic. Normocephalic. EYES: Pupils equal and round. No scleral icterus. No injection or drainage. ENT: Some trismus but able to open mouth adequately to view edema of right tongue and edema of right pharynx, deviation of uvula. Thrush on lateral aspect of tongue and pharynx. There is right submandibular swelling with swelling below mandible about the size of a igiugig without area of fluctuance. Able to phonate with muffled voice, no stridor. NECK: No JVD. CARDIOVASCULAR: Regular rate and rhythm. No murmurs rubs or gallops. RESPIRATORY: No accessory muscle use. Clear to auscultation. Breath sounds equal bilaterally. GASTROINTESTINAL: Abdomen soft, non-tender, nondistended. MUSCULOSKELETAL: Extremities without clubbing, cyanosis, or peripheral edema. NEUROLOGICAL: Awake and alert. No obvious cranial nerve deficits. Motor grossly within normal limits. Caprini VTE Risk Assessment Caprini VTE Risk Assessment: Moderate/High Risk (score >= 2) Caprini Risk Assessment Model: Point Value = 1 Point Value = 2 Point Value = 3 Point Value = 5 Age 41-60 Minor surgery BMI > 25 kg/m2 Swollen legs Varicose veins or History of unexplained or recurrent spontaneous Oral contraceptives or hormone replacement Sepsis (< 1 month) Serious lung disease, including pneumonia (< 1 month) Abnormal pulmonary function Acute myocardial infarction Congestive heart failure (< 1 month) History of inflammatory bowel disease Medical patient at bed rest Age 61-74 Arthroscopic surgery Major open surgery (> 45 min) Laparoscopic surgery (> 45 min) Malignancy Confined to bed (> 72 hours) Immobilizing plaster cast Central venous access Age >= 75 History of VTE Family history of VTE Factor V Leiden Prothrombin [id number] Lupus anticoagulant Anticardiolipin antibodies Elevated serum homocysteine Heparin-induced thrombocytopenia Other congenital or acquired thrombophilia Stroke (< 1 month) Elective arthroplasty Hip, pelvis, or leg fracture Acute spinal cord injury (< 1 month) Prophylaxis Regimen: Total Risk Factor Score Risk Level Prophylaxis Regimen 0-1 Low Early ambulation 2 Moderate Order ONE of the following: *Sequential Compression Device (SCD) *Heparin 5000 units SQ BID 3-4 Higher Order ONE of the following medications: *Heparin 5000 units SQ TID *Enoxaparin/Lovenox 40 mg SQ daily (WT < 150 kg, CrCl > 30 mL/min) *Enoxaparin/Lovenox 30 mg SQ daily (WT < 150 kg, CrCl > 10-29 mL/min) *Enoxaparin/Lovenox 30 mg SQ BID (WT < 150 kg, CrCl > 30 mL/min) AND/OR *Sequential Compression Device (SCD) 5 or more Highest Order ONE of the following medications: *Heparin 5000 units SQ TID (Preferred with Epidurals) *Enoxaparin/Lovenox 40 mg SQ daily (WT < 150 kg, CrCl > 30 mL/min) *Enoxaparin/Lovenox 30 mg SQ daily (WT < 150 kg, CrCl > 10-29 mL/min) *Enoxaparin/Lovenox 30 mg SQ BID (WT < 150 kg, CrCl > 30 mL/min) AND *Sequential Compression Device (SCD) Assessment and Plan - Problem List (1) Odynophagia Code(s): R13.10 - Dysphagia, unspecified Status: Acute (2) Lingual tonsillitis Code(s): J03.90 - Acute tonsillitis, unspecified Status: Acute (3) Tongue edema Code(s): K14.8 - Other diseases of tongue Status: Acute (4) Swollen neck Code(s): R22.1 - Localized swelling, mass and lump, neck Status: Acute (5) Thrush Code(s): B37.0 - Candidal stomatitis Status: Acute (6) Tobacco abuse Code(s): Z72.0 - Tobacco use Status: Chronic - Assessment and Plan Plan: NEURO: Odynophagia Toradol/viscous lidocaine as needed for pain. Dilaudid as needed for breakthrough pain Daily alcohol use (4 hard liquor beverages daily) Thiamine/multivitamin/folic acid as needed. Monitor for signs of alcohol withdrawal and administer medications per [facility] protocol if indicated. RESP: Tobacco abuse On RA. Airway deviated by significant soft tissue swelling but is patent. Monitoring airway in ICU. Tobacco cessation counseling discussed CV: Monitor vitals GI: N.p.o. for ENT evaluation. FEN/RENAL: Voiding. Normal creatinine. D5 LR at 50 mill liters per hour ID: Lingual tonsillitis/pharyngitis/Neck soft tissue infection Failing outpatient therapy with clindamycin and Decadron. Continue Unasyn and vancomycin IV that were initiated in the ED. Obtain blood cultures. Continue Decadron 4 mg IV every 6 hours. ENT consultation Thrush nystatin swish and swallow ENDO: Euglycemic PROPH: SCDs, ambulation for DVT prophylaxis. Hold on pharmacologic DVT prophylaxis until ENT evaluation. Protonix 40 mg IV daily for stress ulcer prophylaxis while on steroids. ACCESS: Peripheral IV providing adequate access at this time. Full code Patient is critically ill with neck soft tissue infection with airway deviation. Monitor closely in ICU as she is at risk for deterioration. Critical care time 40 minutes exclusive of separately billable procedures.
[2018-01-19] MEDS ORDERED: Bisacodyl 10 MG Supp RECTAL PRN (22:28)
[2018-01-19] MEDS ORDERED: Vancomycin Consult Pharmacy OTHER PRN (22:33)
[2018-01-19] MEDS: Dextrose 5%/Lactated Ringer's 1,000 ML IV.CONT SCH (22:41)
[2018-01-19] MEDS: Nystatin Liq 500,000 UNIT/5 ML UDC SWISH-SWAL SCH (23:29)
[2018-01-19] MEDS: Ampicillin/Sulbactam Inj 3 GM in Sodium Chloride 0.9% Inj 100 ML IV.SIG SCH (23:45)
[2018-01-20] MEDS: Chlorhexidine Gluconate 2% 1 Pack (2 Cloths) TOPICAL SCH (03:48)
[2018-01-20] MEDS ORDERED: Chlorhexidine Gluconate 2% 1 Pack (2 Cloths) TOPICAL PRN (04:00)
[2018-01-20] MEDS: HYDROmorphone PF Inj 2 MG/ML Vial IV.PUSH PRN ×3 (04:01→20:48)
[2018-01-20 04:44] LABS: Baso % (Auto) 0.1 % (0.0-2.0); Hematocrit 42.6 % (35.0-46.0); Hemoglobin 14.3 gm/dL (11.6-15.3); Lymph # (Auto) 0.4 th/mm3 (1.0-4.8); Lymph % (Auto) 2.3 % (9.0-44.0); Mean Corpuscular HGB Conc 33.6 % (32.0-36.0); Mean Corpuscular Volume 110.2 fL (80.0-100.0); Mean Platelet Volume 10.5 fL (7.0-11.0); Mono % (Auto) 6.4 % (0.0-8.0); Neut # (Auto) 14.3 th/mm3 (1.8-7.7); Neut % (Auto) 91.2 % (16.0-70.0); Platelet Count 159 th/mm3 (150-450); Red Blood Count 3.87 mil/mm3 (4.00-5.30); Red Cell Distribution Width 14.1 % (11.6-17.2); White Blood Count 15.7 th/mm3 (4.0-11.0)
[2018-01-20] MEDS: Ampicillin/Sulbactam Inj 3 GM in Sodium Chloride 0.9% Inj 100 ML IV.SIG SCH ×3 (05:14→17:12)
[2018-01-20 05:42] LABS: Anion Gap 9 meq/L (5-15); Blood Urea Nitrogen 9 mg/dL (7-18); Calcium 8.7 mg/dL (8.5-10.1); Carbon Dioxide 24.4 meq/L (21.0-32.0); Chloride 108 meq/L (98-107); Glomerular Filtration Rate Greater Than 89 mL/min (>89); Glucose,Random 151 mg/dL (74-106); Sodium 141 meq/L (136-145)
[2018-01-20 05:44] LABS: Potassium 4.4 meq/L (3.5-5.1)
[2018-01-20] MEDS ORDERED: LORazepam 1 MG Tablet PO PRN (08:00)
[2018-01-20] MEDS ORDERED: Haloperidol Inj 5 MG/ML Ampul IV.PUSH PRN (08:00)
[2018-01-20] MEDS: Nystatin Liq 500,000 UNIT/5 ML UDC SWISH-SWAL SCH ×4 (08:20→20:48)
[2018-01-20] MEDS: Senna/Docusate Sodium 8.6/50 MG Tablet PO SCH ×2 (08:21→20:48)
[2018-01-20] MEDS: Pantoprazole Inj 40 MG Vial IV.PUSH SCH (08:21)
[2018-01-20] MEDS: Multivitamin Inj 10 ML, Thiamine Inj 100 MG, Folic Acid Inj 1 MG in Sodium Chlor 0.9% I... IV.SIG SCH (09:57)
[2018-01-20] MEDS: Vancomycin Inj 1,000 MG in Sodium Chlor 0.9% Inj 250 ML IV.SIG SCH ×2 (10:57→21:36)
--- NOTE | 2018-01-20 11:36 | P.PNCC ---
Subjective Subjective Remarks/Hospital Course: 58-year-old female past medical history of tobacco and daily alcohol use. She presented to [facility] emergency department with severe sore throat. She was previously admitted on January 13 after she developed right tongue swelling, trismus, and difficulty swallowing. CT face at that time demonstrated edema and enhancement of lingual tonsils. She was admitted and placed on decadron and Rocephin. She was seen by Dr. Clemente and then discharged 01/14 after she had good 24 hour clinical response. She was discharged on clindamycin and decadron which she states she has been taking as prescribed. She states after discharge on Sunday she developed swelling below mandible and extending down her neck, slowly progressing over last 6 days. She has made follow-up appointment with ENT for January 21. However, she is no longer able to tolerate the pain. She is able to swallow oral secretions but it is so painful so sometimes she spits. She is able to speak with hot potato voice but writes to communicate because speaking is so painful. She denies fever. Is not really taking much to drink today due to odynophagia. CT now demonstrates worsening swelling of right tongue and pharyngeal soft tissue extending down right neck with deviation of airway. She is afebrile. 01/20: Patient is sitting up in bed. Throat is painful and neck swelling slightly improved. ENT recommends continued medical management. Objective Vital Signs / I&O: Vital Signs 01/19/18 16:30 01/19/18 16:34 01/19/18 17:25 Temperature 98.9 F Pulse Rate 76 60 Respiratory Rate 15 18 Blood Pressure 146/88 H 127/78 Pulse Oximetry 96 98 96 01/19/18 19:00 01/19/18 21:40 01/19/18 22:46 Temperature Pulse Rate 80 72 72 Respiratory Rate 16 16 16 Blood Pressure 142/84 H 131/63 118/66 Pulse Oximetry 95 96 96 01/19/18 23:25 01/20/18 04:00 01/20/18 05:13 Temperature 98.6 F Pulse Rate 71 55 L Respiratory Rate 16 11 L 14 Blood Pressure 132/84 88/50 L Pulse Oximetry 99 97 01/20/18 07:19 01/20/18 08:00 01/20/18 08:01 Temperature 98.0 F Pulse Rate 53 L 68 65 Respiratory Rate 12 15 11 L Blood Pressure 132/70 Pulse Oximetry 93 L 97 98 01/20/18 09:00 01/20/18 10:00 01/20/18 10:01 Temperature Pulse Rate 56 L 59 L 59 L Respiratory Rate 12 24 22 Blood Pressure 99/57 L 124/59 L Pulse Oximetry 90 L 94 L 94 L 01/20/18 11:00 Temperature Pulse Rate 65 Respiratory Rate 15 Blood Pressure 132/74 Pulse Oximetry 91 L Intake & Output 01/19/18 01/20/18 01/20/18 18:59 06:59 18:59 Intake Total 100 / 100 1715 / 1715 Output Total 800 / 800 Balance 100 / 100 915 / 915 Weight 50.802 kg 55.9 kg Intake: IV 100 / 100 1715 / 1715 Unasyn Inj 3 GM In NS Inj 100 100 / 100 200 / 200 ML @ 200 mls/hr IV.SIG Q6H DEDRA Rx#:[id number] NS Inj 1,000 ML @ Wide Open IV. 1000 / 1000 SIG BOLUS DEDRA Rx#:[id number] Vancomycin Inj 1,500 MG In NS 515 / 515 Inj 500 ML @ 250 mls/hr IV.SIG ONCE ONE Rx#:[id number] Oral 0 / 0 Output: Urine 800 / 800 Other: # Voids 2 Date of Last Bowel Movement 01/19/18 01/19/18 # Bowel Movements 0 Weight On Admission 55.9 kg Result Diagrams: 01/20/18 03:13 01/20/18 03:13 Objective Remarks: GENERAL: Well-nourished patient who is sitting up in bed SKIN: Warm and dry, no rash HEAD: Atraumatic. Normocephalic. EYES: Pupils equal and round. No scleral icterus. No injection or drainage. ENT: Able to open mouth adequately to view edema of right tongue and edema of right pharynx, deviation of uvula. Thrush on lateral aspect of tongue and pharynx. Right submandibular swelling without area of fluctuance. Able to phonate with no stridor. NECK: No JVD. CARDIOVASCULAR: Regular rate and rhythm. No murmurs rubs or gallops. RESPIRATORY: No accessory muscle use. Clear to auscultation. Breath sounds equal bilaterally. GASTROINTESTINAL: Abdomen soft, non-tender, nondistended. MUSCULOSKELETAL: Extremities without clubbing, cyanosis, or peripheral edema. NEUROLOGICAL: Awake and alert. No obvious cranial nerve deficits. Motor grossly within normal limits. Assessment and Plan - Problem List (1) Odynophagia Code(s): R13.10 - Dysphagia, unspecified Status: Acute (2) Lingual tonsillitis Code(s): J03.90 - Acute tonsillitis, unspecified Status: Acute (3) Tongue edema Code(s): K14.8 - Other diseases of tongue Status: Acute (4) Swollen neck Code(s): R22.1 - Localized swelling, mass and lump, neck Status: Acute (5) Thrush Code(s): B37.0 - Candidal stomatitis Status: Acute (6) Tobacco abuse Code(s): Z72.0 - Tobacco use Status: Chronic - Assessment and Plan Plan: NEURO: Odynophagia Toradol/viscous lidocaine as needed for pain. Dilaudid as needed for breakthrough pain Daily alcohol use (4 hard liquor beverages daily) Thiamine/multivitamin/folic acid as needed. Monitor for signs of alcohol withdrawal and administer medications per [facility] protocol if indicated. RESP: Tobacco abuse On RA. Airway deviated by significant soft tissue swelling but is patent. Monitoring airway in ICU. Tobacco cessation counseling discussed CV: Monitor vitals GI: N.p.o. for ENT evaluation. No surgical intervention per ENT-if stable start diet by dinner time FEN/RENAL: Voiding. Normal creatinine. D5 LR at 50 mill liters per hour ID: Lingual tonsillitis/pharyngitis/Neck soft tissue infection Failing outpatient therapy with clindamycin and Decadron. Continue Unasyn and vancomycin IV that were initiated in the ED. F/u blood cultures. Continue Decadron 4 mg IV every 6 hours. ENT consultation-official report pending from Dr. Yarely Yoder nystatin swish and swallow ENDO: Euglycemic PROPH: SCDs, ambulation for DVT prophylaxis. Hold on pharmacologic DVT prophylaxis . Protonix 40 mg IV daily for stress ulcer prophylaxis while on steroids. ACCESS: Peripheral IV providing adequate access at this time. Full code Level 3 Continue ICU care, consult [facility] hospitalist to assume care in a.m.
[2018-01-20] MEDS ORDERED: Benzocaine/Menthol 15 MG/3.6 MG SF Lozenge BUCCAL PRN (12:47)
[2018-01-20] MEDS: Dextrose 5%/Lactated Ringer's 1,000 ML IV.CONT SCH (18:31)
--- NOTE | 2018-01-20 20:17 | MD ---
cc: Aneudy Pritchett MD DATE OF DISCHARGE: HISTORY OF PRESENT ILLNESS: Patient had a presumed peritonsillar abscess was seen in hospital approximately 5 days ago and discharged in less than 23 hours, by her report, with some improvement in symptoms of fullness in her left neck, on p.o. antibiotics. The p.o. antibiotics did not help. She worsened. She is back now complaining of difficulty swallowing. On exam, she has no airway compromise. When I approached the bed initially she was sleeping without signs of stertor or stridor. PHYSICAL EXAM: HEENT: Ears are clear. Nasal cavity, mild septal deviation. Oral cavity reveals slight elevation of right tongue base. Floor of mouth is soft. NECK: Soft, although on the right side, there is significant edema without erythema of the submandibular space on the right side with no fluctuance. Flexible exam reveals the right base of tongue to be mildly edematous without erythema and the right arytenoid swollen. IMPRESSION: Parapharyngeal space infection, appears to be without obvious need for airway intervention at this time. Recommend continued IV steroids, IV antibiotics. Likely, the patient continued to smoke at home and cessation of smoking in the hospital will be a significant improvement, along with hydration and proper antibiotic and steroid use. We will follow. MD SANDI Nassar/marty , 10:35 AM , 10:42 AM
--- NOTE | 2018-01-20 20:19 | MD ---
cc: Aneudy Pritchett MD DATE OF DISCHARGE: ADDENDUM: CT review reveals that there is worsening infection in the submandibular and lingual space, not so much in the peritonsillar space. There may be a role for oral surgery to get involved, if this worsens. Will first try resumption of the IV antibiotics and IV steroids. If airway worsens, patient is likely to be a candidate for intubation, although if airway worsens to the point where trach required, would consider general surgery intervention. Again will follow with repeated exam. MD SANDI Nassar/marty , 10:39 AM , 10:44 AM
[2018-01-21] MEDS: Chlorhexidine Gluconate 2% 1 Pack (2 Cloths) TOPICAL SCH (05:05)
[2018-01-21] MEDS: Ampicillin/Sulbactam Inj 3 GM in Sodium Chloride 0.9% Inj 100 ML IV.SIG SCH ×5 (05:24→18:48)
[2018-01-21] MEDS: HYDROmorphone PF Inj 2 MG/ML Vial IV.PUSH PRN (06:04)
[2018-01-21 07:00] LABS: Hematocrit 39.8 % (35.0-46.0); Hemoglobin 13.5 gm/dL (11.6-15.3); Mean Corpuscular HGB Conc 33.8 % (32.0-36.0); Mean Corpuscular Hemoglobin 36.4 pg (27.0-34.0); Mean Corpuscular Volume 107.6 fL (80.0-100.0); Mean Platelet Volume 11.4 fL (7.0-11.0); Platelet Count 177 th/mm3 (150-450); Red Cell Distribution Width 13.9 % (11.6-17.2); White Blood Count 15.1 th/mm3 (4.0-11.0)
[2018-01-21] MEDS: Nystatin Liq 500,000 UNIT/5 ML UDC SWISH-SWAL SCH ×4 (08:39→21:25)
[2018-01-21] MEDS: Multivitamin Inj 10 ML, Thiamine Inj 100 MG, Folic Acid Inj 1 MG in Sodium Chlor 0.9% I... IV.SIG SCH (08:39)
[2018-01-21] MEDS: Pantoprazole Inj 40 MG Vial IV.PUSH SCH (08:40)
[2018-01-21] MEDS: Senna/Docusate Sodium 8.6/50 MG Tablet PO SCH ×2 (08:41→21:26)
[2018-01-21] MEDS: Vancomycin Inj 1,000 MG in Sodium Chlor 0.9% Inj 250 ML IV.SIG SCH ×2 (13:56→21:26)
[2018-01-21] MEDS: Dextrose 5%/Lactated Ringer's 1,000 ML IV.CONT SCH (18:52)
--- NOTE | 2018-01-21 19:11 | P.PNIM ---
Subjective Interval history: Patient states her neck pain and swelling have improved since yesterday. She does not have any other current complaints. Physical Exam Vital signs: Vital Signs 01/20/18 20:00 01/20/18 20:43 01/20/18 21:00 Temperature Pulse Rate 57 L 66 Respiratory Rate 22 20 Blood Pressure 143/80 H 142/84 H Pulse Oximetry 93 L 95 92 L 01/20/18 21:20 01/20/18 22:00 01/20/18 23:00 Temperature Pulse Rate 54 L 58 L Respiratory Rate 20 19 19 Blood Pressure 123/72 111/64 Pulse Oximetry 93 L 01/21/18 00:00 01/21/18 01:00 01/21/18 02:00 Temperature 98.8 F Pulse Rate 60 52 L 50 L Respiratory Rate 15 23 18 Blood Pressure 134/78 136/76 118/69 Pulse Oximetry 90 L 95 94 L 01/21/18 03:00 01/21/18 04:00 01/21/18 05:00 Temperature 98.9 F Pulse Rate 51 L 51 L 52 L Respiratory Rate 30 H 18 19 Blood Pressure 119/71 121/69 Pulse Oximetry 94 L 93 L 93 L 01/21/18 05:04 01/21/18 06:00 01/21/18 08:00 Temperature 98.7 F Pulse Rate 51 L 69 48 L Respiratory Rate 16 30 H 24 Blood Pressure 122/67 140/74 133/76 Pulse Oximetry 95 94 L 94 L 01/21/18 09:00 01/21/18 09:15 01/21/18 10:00 Temperature Pulse Rate 86 58 L Respiratory Rate 16 16 Blood Pressure 131/74 143/72 H Pulse Oximetry 88 L 96 93 L 01/21/18 11:00 01/21/18 12:00 01/21/18 16:00 Temperature 98 F 98.5 F Pulse Rate 58 L 59 L 67 Respiratory Rate 18 18 16 Blood Pressure 123/75 153/78 H 158/81 H Pulse Oximetry 94 L 92 L 94 L 01/21/18 17:00 Temperature Pulse Rate 86 Respiratory Rate 18 Blood Pressure 152/87 H Pulse Oximetry 96 Intake & Output 01/21/18 01/21/18 01/22/18 06:59 18:59 06:59 Intake Total 550 / 550 1100 / 1100 Balance 550 / 550 1100 / 1100 Weight 56.4 kg Intake: IV 550 / 550 1100 / 1100 D5W/LR Inj 1,000 ML @ 50 mls/hr 1000 / 1000 IV.CONT .Q20H DEDRA Rx#:[id number] Unasyn Inj 3 GM In NS Inj 100 300 / 300 100 / 100 ML @ 200 mls/hr IV.SIG Q6H DEDRA Rx#:[id number] Vancomycin Inj 1,000 MG In NS 250 / 250 Inj 250 ML @ 250 mls/hr IV.SIG Q12H DEDRA Rx#:[id number] Oral 0 / 0 Other: # Voids 1 Date of Last Bowel Movement 02/19/18 01/20/18 Narrative: General patient in no acute distress HEENT swelling noted on the right side of the neck. Cardiovascular S1-S2 audible, RRR, no murmurs rubs or gallops Respiratory clear to auscultation bilaterally Abdomen soft, nontender, nondistended, normal bowel sounds Extremities no edema 2+ distal pulses in bilateral upper and lower extremities Neuro cranial nerves II through XII intact Results - Labs CBC & Chem 7: 01/21/18 04:57 01/20/18 03:13 Laboratory Results - last 24 hr 01/21/18 04:57 WBC 15.1 H RBC 3.70 L Hgb 13.5 Hct 39.8 MCV 107.6 H MCH 36.4 H MCHC 33.8 RDW 13.9 Plt Count 177 MPV 11.4 H Microbiology 01/19/18 22:40 Blood - Peripheral Aerobic Blood Culture - Preliminary No growth in 2 days 01/19/18 22:40 Blood - Peripheral Anaerobic Blood Culture - Preliminary No growth in 2 days 01/19/18 22:45 Blood - Peripheral Aerobic Blood Culture - Preliminary No growth in 2 days 01/19/18 22:45 Blood - Peripheral Anaerobic Blood Culture - Preliminary No growth in 2 days Assessment and Plan - Plan Patient is a 58-year-old female who was recently at our facility with a soft tissue infection of the neck. After her recent discharge the patient began to have worsening pain around the neck and was having difficulty swallowing. She then presented to our emergency department for further evaluation and care. CT scan of the neck showed a significant enlargement in the swelling extending from the base of the tongue down to the level the base of the epiglottis. There was also an increase in the size of the right submandibular gland. She was admitted and started on treatment. 1. Lingual tonsillitis/pharyngitis/neck soft tissue infection The patient failed outpatient treatment with clindamycin and Decadron. Currently she is on IV Unasyn and IV vancomycin. Blood cultures are currently negative. ENT will evaluate the patient. Will follow up with recommendations from ENT. Continue IV Decadron. If the patient is swallowing fine she will be started on a clear liquid diet. As per documentation there is no plan for surgical intervention at this time as her symptoms are improving. Continue pain medications as needed. 2. Tobacco use Patient was counseled on smoking cessation. 3. Alcohol abuse Patient was advised to stop alcohol abuse. Patient is ambulatory, no need for pharmacotherapy for DVT prophylaxis.
[2018-01-22] MEDS: Ampicillin/Sulbactam Inj 3 GM in Sodium Chloride 0.9% Inj 100 ML IV.SIG SCH ×5 (00:04→23:38)
[2018-01-22] MEDS: Chlorhexidine Gluconate 2% 1 Pack (2 Cloths) TOPICAL SCH (04:57)
[2018-01-22 06:52] LABS: Baso % (Auto) 0.1 % (0.0-2.0); Hemoglobin 12.7 gm/dL (11.6-15.3); Lymph # (Auto) 0.5 th/mm3 (1.0-4.8); Lymph % (Auto) 4.5 % (9.0-44.0); Mean Corpuscular HGB Conc 33.5 % (32.0-36.0); Mean Corpuscular Hemoglobin 36.5 pg (27.0-34.0); Mean Platelet Volume 11.3 fL (7.0-11.0); Mono # (Auto) 0.9 th/mm3 (0.0-0.9); Mono % (Auto) 8.1 % (0.0-8.0); Neut % (Auto) 87.3 % (16.0-70.0); Platelet Count 176 th/mm3 (150-450); Red Blood Count 3.49 mil/mm3 (4.00-5.30); Red Cell Distribution Width 13.6 % (11.6-17.2); White Blood Count 11.5 th/mm3 (4.0-11.0)
[2018-01-22 07:34] LABS: Glomerular Filtration Rate Greater Than 89 mL/min (>89)
[2018-01-22] MEDS: Vancomycin Inj 1,000 MG in Sodium Chlor 0.9% Inj 250 ML IV.SIG SCH ×2 (09:04→21:47)
[2018-01-22] MEDS: Pantoprazole Inj 40 MG Vial IV.PUSH SCH (09:05)
[2018-01-22] MEDS: Nystatin Liq 500,000 UNIT/5 ML UDC SWISH-SWAL SCH ×4 (09:06→20:24)
[2018-01-22] MEDS: Senna/Docusate Sodium 8.6/50 MG Tablet PO SCH ×2 (09:06→20:24)
[2018-01-22] MEDS ORDERED: Pharmacy Ordered Lab Info OTHER ONE ×2 (09:45→21:45)
[2018-01-22] MEDS: Multivitamin Inj 10 ML, Thiamine Inj 100 MG, Folic Acid Inj 1 MG in Sodium Chlor 0.9% I... IV.SIG SCH (14:38)
[2018-01-22] MEDS: Dextrose 5%/Lactated Ringer's 1,000 ML IV.CONT SCH (14:39)
--- NOTE | 2018-01-22 18:35 | P.PNIM ---
Subjective Interval history: Patient notes having improvement in her symptoms. She is able to tolerate a p.o. liquid diet. The pain on the right side of her neck has also improved since yesterday. Physical Exam Vital signs: Vital Signs 01/21/18 19:00 01/21/18 20:00 01/21/18 21:00 Temperature 98.3 F Pulse Rate 74 59 L 62 Respiratory Rate 23 23 29 H Blood Pressure 146/74 H 137/72 Pulse Oximetry 94 L 92 L 96 01/21/18 22:00 01/21/18 23:00 01/22/18 00:00 Temperature Pulse Rate 66 63 Respiratory Rate 25 H 23 17 Blood Pressure 119/69 128/71 Pulse Oximetry 97 95 01/22/18 00:26 01/22/18 01:00 01/22/18 02:00 Temperature 98.6 F Pulse Rate 51 L 53 L 54 L Respiratory Rate 17 24 23 Blood Pressure 127/77 125/72 151/76 H Pulse Oximetry 96 92 L 94 L 01/22/18 03:00 01/22/18 04:00 01/22/18 05:00 Temperature 98.8 F 98.8 F Pulse Rate 49 L 45 L 49 L Respiratory Rate 23 24 Blood Pressure 134/74 122/73 123/72 Pulse Oximetry 97 96 28 L 01/22/18 06:00 01/22/18 07:00 01/22/18 08:00 Temperature 99.0 F 99 F Pulse Rate 57 L 51 L 51 L Respiratory Rate 23 18 Blood Pressure 117/63 121/70 117/63 Pulse Oximetry 95 99 01/22/18 09:00 01/22/18 10:00 01/22/18 10:30 Temperature Pulse Rate 60 81 Respiratory Rate 16 18 Blood Pressure 125/67 120/73 Pulse Oximetry 94 L 99 99 01/22/18 11:00 01/22/18 12:00 01/22/18 13:00 Temperature Pulse Rate 99 H 97 H 71 Respiratory Rate 20 20 16 Blood Pressure 113/63 104/57 L 110/67 Pulse Oximetry 99 99 01/22/18 14:00 01/22/18 15:00 01/22/18 16:00 Temperature 98.8 F 99 F Pulse Rate 65 58 L 52 L Respiratory Rate 12 18 16 Blood Pressure 134/75 141/84 H 137/78 Pulse Oximetry 01/22/18 17:00 Temperature Pulse Rate 51 L Respiratory Rate 16 Blood Pressure 134/75 Pulse Oximetry Intake & Output 01/21/18 01/22/18 01/22/18 18:59 06:59 18:59 Intake Total 1100 / 1100 1811.2 / 1811.2 1100 / 1100 Balance 1100 / 1100 1811.2 / 1811.2 1100 / 1100 Weight 56.1 kg Intake: IV 1100 / 1100 1311.2 / 1311.2 1100 / 1100 D5W/LR Inj 1,000 ML @ 50 mls/hr 1000 / 1000 1000 / 1000 IV.CONT .Q20H DEDRA Rx#:[id number] Unasyn Inj 3 GM In NS Inj 100 100 / 100 300 / 300 100 / 100 ML @ 200 mls/hr IV.SIG Q6H DEDRA Rx#:[id number] MVI-12 Inj 10 ML Thiamine Inj 511.2 / 511.2 100 MG Folvite Inj 1 MG In NS Inj 500 ML @ 127.8 mls/hr IV. SIG DAILY DEDRA Rx#:[id number] Vancomycin Inj 1,000 MG In NS 500 / 500 Inj 250 ML @ 250 mls/hr IV.SIG Q12H DEDRA Rx#:[id number] Oral 500 / 500 Other: # Voids 3 Date of Last Bowel Movement 01/20/18 01/21/18 01/22/18 # Bowel Movements 2 Narrative: General patient in no acute distress HEENT swelling noted on the right side of the neck, improved from yesterday. Cardiovascular S1-S2 audible, RRR, no murmurs rubs or gallops Respiratory clear to auscultation bilaterally Abdomen soft, nontender, nondistended, normal bowel sounds Extremities no edema 2+ distal pulses in bilateral upper and lower extremities Neuro cranial nerves II through XII intact Results - Labs CBC & Chem 7: 01/22/18 06:10 01/22/18 06:10 Laboratory Results - last 24 hr 01/22/18 01/22/18 06:10 06:10 WBC 11.5 H RBC 3.49 L Hgb 12.7 Hct 38.0 MCV 109.0 H MCH 36.5 H MCHC 33.5 RDW 13.6 Plt Count 176 MPV 11.3 H Neut % (Auto) 87.3 H Lymph % (Auto) 4.5 L Bladen % (Auto) 8.1 H Eos % (Auto) 0.0 Baso % (Auto) 0.1 Neut # (Auto) 10.0 H Lymph # (Auto) 0.5 L Bladen # (Auto) 0.9 Eos # (Auto) 0.0 Baso # (Auto) 0.0 WBC Differential . Differential Comment Auto diff final Creatinine 0.54 Estimated GFR Greater than 89 Microbiology 01/19/18 22:40 Blood - Peripheral Aerobic Blood Culture - Preliminary No growth in 3 days 01/19/18 22:40 Blood - Peripheral Anaerobic Blood Culture - Preliminary No growth in 3 days 01/19/18 22:45 Blood - Peripheral Aerobic Blood Culture - Preliminary No growth in 3 days 01/19/18 22:45 Blood - Peripheral Anaerobic Blood Culture - Preliminary No growth in 3 days Assessment and Plan - Plan Patient is a 58-year-old female who was recently at our facility with a soft tissue infection of the neck. After her recent discharge the patient began to have worsening pain around the neck and was having difficulty swallowing. She then presented to our emergency department for further evaluation and care. CT scan of the neck showed a significant enlargement in the swelling extending from the base of the tongue down to the level the base of the epiglottis. There was also an increase in the size of the right submandibular gland. She was admitted and started on treatment. 1. Lingual tonsillitis/pharyngitis/neck soft tissue infection The patient failed outpatient treatment with clindamycin and Decadron. Currently she is on IV Unasyn and IV vancomycin. Blood cultures are currently negative. ENT note from 01/20/2018 recommends continued IV steroids and IV antibiotics. No need for surgical intervention currently. Continue IV Decadron. The patient is now tolerating a p.o. diet we will advance her diet to a regular diet. Continue pain medications as needed. If the patient is tolerating a p.o. diet and has improvement in her symptoms she will be likely discharged tomorrow. 2. Tobacco use Patient was counseled on smoking cessation. 3. Alcohol abuse Patient was advised to stop alcohol abuse. Patient is ambulatory, no need for pharmacotherapy for DVT prophylaxis.
[2018-01-22] MEDS ORDERED: Benzocaine/Menthol 15 MG/3.6 MG SF Lozenge BUCCAL PRN (21:32)
[2018-01-23] MEDS: Chlorhexidine Gluconate 2% 1 Pack (2 Cloths) TOPICAL SCH (05:04)
[2018-01-23] MEDS: Ampicillin/Sulbactam Inj 3 GM in Sodium Chloride 0.9% Inj 100 ML IV.SIG SCH ×3 (05:04→18:22)
[2018-01-23 07:55] LABS: Glomerular Filtration Rate Greater Than 89 mL/min (>89)
[2018-01-23] MEDS: Nystatin Liq 500,000 UNIT/5 ML UDC SWISH-SWAL SCH ×3 (08:30→18:22)
[2018-01-23] MEDS: Multivitamin Inj 10 ML, Thiamine Inj 100 MG, Folic Acid Inj 1 MG in Sodium Chlor 0.9% I... IV.SIG SCH (08:30)
[2018-01-23] MEDS: Pantoprazole Inj 40 MG Vial IV.PUSH SCH (08:30)
[2018-01-23] MEDS: Senna/Docusate Sodium 8.6/50 MG Tablet PO SCH (08:31)
[2018-01-23] MEDS ORDERED: Vancomycin Inj 1,250 MG in Sodium Chlor 0.9% Inj 250 ML IV.SIG SCH (10:00)
[2018-01-23 16:41] VITALS: BP 140/74; RESP 26; TEMP 98.4; O2SAT 90
--- NOTE | 2018-01-23 17:18 | P.DS ---
Date of admission: 01/19/18 22:11 Primary care physician: Camden Moser MD Brief History from admission: 58-year-old female past medical history of tobacco and daily alcohol use. She presented to [facility] emergency department with severe sore throat. She was previously admitted on January 13 after she developed right tongue swelling, trismus, and difficulty swallowing. CT face at that time demonstrated edema and enhancement of lingual tonsils. She was admitted and placed on decadron and Rocephin. She was seen by Dr. Clemente and then discharged 01/14 after she had good 24 hour clinical response. She was discharged on clindamycin and decadron which she states she has been taking as prescribed. She states after discharge on Sunday she developed swelling below mandible and extending down her neck, slowly progressing over last 6 days. She has made follow-up appointment with ENT for January 21. However, she is no longer able to tolerate the pain. She is able to swallow oral secretions but it is so painful so sometimes she spits. She is able to speak with hot potato voice but writes to communicate because speaking is so painful. She denies fever. Is not really taking much to drink today due to odynophagia. CT now demonstrates worsening swelling of right tongue and pharyngeal soft tissue extending down right neck with deviation of airway. DS: Summary Hospital Course: Patient is a 58-year-old female who was recently at our facility with a soft tissue infection of the neck. After her recent discharge the patient began to have worsening pain around the neck and was having difficulty swallowing. She then presented to our emergency department for further evaluation and care. CT scan of the neck showed a significant enlargement in the swelling extending from the base of the tongue down to the level the base of the epiglottis. There was also an increase in the size of the right submandibular gland. She was admitted and started on treatment. 1. Lingual tonsillitis/pharyngitis/neck soft tissue infection The patient symptoms have improved significantly. She does not have any shortness of breath. No difficulty swallowing. No pain near the swelling site on her neck. The swelling has improved significantly. The patient failed outpatient treatment with clindamycin and Decadron. Currently she is on IV Unasyn and IV vancomycin. Blood cultures are negative. The patient will be discharged on 7 more days of p.o. Augmentin and prednisone. ENT did not recommend any surgical intervention as the patient's symptoms improved significantly. The patient is now tolerating a p.o. diet which was advanced. She will be discharged home today. She currently has no complaints of pain. She can follow-up with her primary care physician within the next week. If the patient's symptoms return she was advised to seek immediate medical attention. 2. Tobacco use Patient was counseled on smoking cessation. 3. Alcohol abuse Patient was advised to stop alcohol abuse. - Time Spent with Patient Total time spent providing and/or coordinating discharge services: Greater than 30 minutes - Quality: VTE Deep Vein Thrombosis/Pulmonary Embolism Present on Admission: No Exam Vital signs: Vital Signs 01/22/18 18:00 01/22/18 19:00 01/22/18 19:27 Temperature Pulse Rate 52 L 53 L Respiratory Rate 22 23 Blood Pressure 133/75 130/75 Pulse Oximetry 93 L 93 L 94 L 01/22/18 20:00 01/22/18 20:01 01/22/18 21:00 Temperature 97.7 F Pulse Rate 51 L 53 L 53 L Respiratory Rate 23 28 H 23 Blood Pressure 153/77 H Pulse Oximetry 92 L 92 L 100 01/22/18 21:01 01/22/18 22:00 01/22/18 23:00 Temperature Pulse Rate 52 L 59 L 58 L Respiratory Rate 28 H 24 25 H Blood Pressure 131/79 104/64 111/63 Pulse Oximetry 98 94 L 90 L 01/22/18 23:15 01/23/18 00:00 01/23/18 01:00 Temperature Pulse Rate 56 L 51 L Respiratory Rate 19 22 Blood Pressure 120/59 L 97/56 L Pulse Oximetry 96 90 L 93 L 01/23/18 02:00 01/23/18 03:00 01/23/18 04:00 Temperature 98 F Pulse Rate 48 L 51 L 50 L Respiratory Rate 31 H 18 17 Blood Pressure 112/58 L 121/65 Pulse Oximetry 91 L 95 95 01/23/18 05:00 01/23/18 05:01 01/23/18 06:00 Temperature Pulse Rate 49 L 53 L 45 L Respiratory Rate 18 18 17 Blood Pressure 125/66 Pulse Oximetry 91 L 97 92 L 01/23/18 06:01 01/23/18 07:00 01/23/18 07:01 Temperature Pulse Rate 46 L 52 L 58 L Respiratory Rate 17 26 H 26 H Blood Pressure 145/78 H 141/85 H Pulse Oximetry 95 96 94 L 01/23/18 08:00 01/23/18 08:06 01/23/18 09:00 Temperature 98.0 F Pulse Rate 51 L 53 L 55 L Respiratory Rate 27 H 22 22 Blood Pressure 145/78 H 135/74 145/78 H Pulse Oximetry 89 L 91 L 89 L 01/23/18 10:00 01/23/18 11:00 01/23/18 11:38 Temperature Pulse Rate 62 62 Respiratory Rate 24 19 Blood Pressure 129/69 124/72 Pulse Oximetry 79 L 93 L 92 L 01/23/18 12:00 01/23/18 12:01 01/23/18 13:00 Temperature 99.2 F Pulse Rate 52 L 52 L 54 L Respiratory Rate 24 25 H 21 Blood Pressure 122/56 L 122/56 L 134/86 Pulse Oximetry 93 L 92 L 95 01/23/18 14:00 01/23/18 15:00 01/23/18 16:00 Temperature 98.4 F Pulse Rate 62 54 L 51 L Respiratory Rate 25 H 27 H 26 H Blood Pressure 130/81 133/88 140/74 Pulse Oximetry 93 L 94 L 90 L Intake & Output 01/22/18 01/23/18 01/23/18 18:59 06:59 18:59 Intake Total 2250 / 2250 1250 / 1250 362.50 / 362.50 Output Total 1700 / 1700 Balance 550 / 550 1250 / 1250 362.50 / 362.50 Weight 56.3 kg Intake: IV 1450 / 1450 750 / 750 362.50 / 362.50 D5W/LR Inj 1,000 ML @ 50 mls/hr 1000 / 1000 300 / 300 IV.CONT .Q20H DEDRA Rx#:[id number] Unasyn Inj 3 GM In NS Inj 100 200 / 200 200 / 200 100 / 100 ML @ 200 mls/hr IV.SIG Q6H DEDRA Rx#:[id number] Vancomycin Inj 1,000 MG In NS 250 / 250 250 / 250 Inj 250 ML @ 250 mls/hr IV.SIG Q12H DEDRA Rx#:[id number] Vancomycin Inj 1,250 MG In NS 262.50 / 262.50 Inj 250 ML @ 250 mls/hr IV.SIG Q12H DEDRA Rx#:[id number] Oral 800 / 800 500 / 500 Output: Urine 1700 / 1700 Other: # Voids 5 Date of Last Bowel Movement 01/22/18 01/23/18 01/23/18 # Bowel Movements 2 2 Narrative: General patient in no acute distress HEENT swelling swelling on the right side of the neck has nearly completely resolved. Cardiovascular S1-S2 audible, RRR, no murmurs rubs or gallops Respiratory clear to auscultation bilaterally Abdomen soft, nontender, nondistended, normal bowel sounds Extremities no edema 2+ distal pulses in bilateral upper and lower extremities Neuro cranial nerves II through XII intact Results Procedures completed during hospitalization: none Labs on day of discharge: Labs from last 24 hours 01/23/18 01/22/18 04:22 21:40 Creatinine 0.63 Estimated GFR Greater than 89 Vancomycin Trough 9.1 Preliminary micro results at discharge 01/19/18 22:40 Aerobic Blood Culture - Preliminary Blood - Peripheral No growth in 4 days Anaerobic Blood Culture - Preliminary No growth in 4 days 01/19/18 22:45 Aerobic Blood Culture - Preliminary Blood - Peripheral No growth in 4 days Anaerobic Blood Culture - Preliminary No growth in 4 days - Impressions ITS Impressions Soft Tissue Neck CT 01/19/18 00:00 CONCLUSION: 1. Significant change in appearance of the right oral pharynx and hypopharynx when compared to 01/13/2018 with significant increased soft tissue extending from the base of the tongue down into the level of the base of the epiglottis causing significant deviation of the airway towards the left. There is also increased enlargement of the right submandibular gland. Discharge Plan - Discharge Disposition Patient Disposition: 01 Discharge Home - Discharge Condition Condition: Good - Discharge Order Discharge Orders: Discharge Order (Routine); Ordered 01/23/18 Ordered By: Tarun Oneal - Physicians Team Primary Care Provider: Camden Moser Attending Provider: Tarun Oneal Other Providers: Aneudy Pritchett MD
[2018-01-23 18:29] VITALS: PULSE 57
[2018-01-23] MEDS ORDERED: Amoxicillin/Clavulanate 875/125 MG Tablet PO SCH (21:00)
[2018-01-24] MEDS ORDERED: predniSONE 10 MG Tablet PO SCH (09:00)
[2018-01-25] MEDS ORDERED: Pharmacy Ordered Lab Info OTHER ONE (09:45)
== END 2018-01-23 19:15 | disposition home or self-care (01) ==
LOC: NEPE 16:03 → NEDA 22:11 → HIMC 23:00
PROVIDERS: ADMIT Hospitalist; ATTEND Hospitalist